=== PATIENT | male | born 1950 | race Caucasian/White ===

== ENCOUNTER 2018-09-18 18:41 | Inpatient (IN) ==
[2018-09-18 20:11] LABS: URINE SOURCE CLEAN CATCH
[2018-09-18 20:24] LABS: BILIRUBIN URINE NEGATIVE (NEGATIVE); BLOOD URINE SMALL (NEGATIVE); COLOR YELLOW; GLUCOSE URINE NEGATIVE (NEGATIVE); KETONE URINE NEGATIVE (NEGATIVE); LEUKOCYTES URINE NEGATIVE (NEGATIVE); NITRITE URINE NEGATIVE (NEGATIVE); PROTEIN URINE 30 mg/dL (NEGATIVE); SP GRAVITY URINE 1.016; TURBIDITY URINE CLEAR (CLEAR); UROBILINOGEN URINE 2 mg/dL (NORMAL)
[2018-09-18 20:24] LABS: BASO# 0.14 X1000 (0.0-0.2); BASO% 1.7 % (0.0-0.8); EOS# 0.78 X1000 (0.0-0.7); EOS% 9.3 % (0.0-10.0); HEMATOCRIT 45.5 % (42.0-52.0); HEMOGLOBIN 15.1 g/dL (14.0-18.0); LYMPH# 1.92 X1000 (1.2-3.4); MCH 30.2 PG (27-31); MCHC 33.2 g/dL (33-37); MONO# 0.85 X1000 (0.11-0.59); MONO% 10.2 % (1.7-9.3); MPV 10.6 FL (7.4-10.4); NEUT# 4.66 X1000 (1.4-6.5); NEUT% 55.8 % (42.2-75.2); PLT 259 X1000 (130-400); RDW 14.1 % (11.5-14.5); WBC 8.35 X1000 (4.8-10.8)
[2018-09-18 20:25] LABS: UR AMPHETAMINES QUAL NONE DETECTED (NONE DETECT); UR BARBITUATES QUAL NONE DETECTED (NONE DETECT); UR BENZODIAZEPIN QUAL NONE DETECTED (NONE DETECT); UR CANNABINOIDS QUAL NONE DETECTED (NONE DETECT); UR COCAINE QUAL NONE DETECTED (NONE DETECT); UR METHADONE QUAL NONE DETECTED (NONE DETECT); UR OPIATES QUAL NONE DETECTED (NONE DETECT); UR OXYCODONE QUAL NONE DETECTED (NONE DETECT); UR PCP QUAL NONE DETECTED (NONE DETECT)
[2018-09-18 20:26] LABS: UR EPITHELIAL CELLS <10 /HPF (<10); URINE BACTERIA NEGATIVE /HPF; URINE RBC <10 /HPF (<10); URINE WBC <10 /HPF (<10)
[2018-09-18 20:38] LABS: AGAP 13; ALB/GLOB RATIO 0.7; ALBUMIN 3.8 g/dL (3.5-5.0); ALKALINE PHOSPHATASE 801 U/L (32-122); BUN 17 mg/dL (8-22); CALCIUM 9.5 mg/dL (8.8-10.2); CHLORIDE 99 mmol/L (98-107); COSMO 280; ESTIMATED GFR > 60; GLUCOSE 109 mg/dL (70-104); GOT 59 U/L (10-34); GPT 57 U/L (10-44); POTASSIUM 3.8 mmol/L (3.5-5.1); SODIUM 139 mmol/L (136-145); TCO2 27 mmol/L (25-35); TOTAL PROTEIN 8.9 g/dL (6.3-8.3)
[2018-09-18] MEDS ORDERED: ATIVAN IM ONE (21:33)
[2018-09-18] MEDS ORDERED: GEODON IM ONE (21:33)
[2018-09-18] MEDS ORDERED: STERILE WATER INJ. INJ ONE (21:33)
--- NOTE | 2018-09-18 22:15 | Diag Imaging Result Doc PS360 ---
CT HEAD W/O CONTRAST - 09/18/2018 INDICATION: AMS COMPARISON: 01/21/2016 FINDINGS: Stable mild cerebral atrophy. Grossly stable periventricular white matter chronic microvascular disease. No intracranial mass or hemorrhage. There is fluid in the left maxillary sinus and several ethmoid sinuses compatible with sinusitis. Mastoids and middle ears are clear. IMPRESSION: Chronic ischemic changes of the brain. Multifocal sinusitis. No acute intracranial abnormality. This exam was performed using automated exposure control, adjustment of mA or kV according to patient size, and/or use of iterative reconstruction technique Electronically signed by Joey Guzman 09/18/2018 10:12 PM
--- NOTE | 2018-09-18 22:18 | Diag Imaging Result Doc PS360 ---
CHEST-PORTABLE - 09/18/2018 INDICATION: AMS COMPARISON: 05/09/2016 FINDINGS: There is cardiomegaly and pulmonary vascular congestion. No infiltrates or edema. No significant pleural effusion. IMPRESSION: Cardiomegaly and pulmonary vascular congestion. Electronically signed by Joey Guzman 09/18/2018 10:16 PM
[2018-09-18] MEDS ORDERED: PRINZIDE 20/12.5MG PO ONE (22:41)
[2018-09-18] MEDS ORDERED: AMOXIL PO ONE (22:42)
[2018-09-18] MEDS ORDERED: CATAPRES PO ONE (22:42)
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
[2018-09-18] MEDS ORDERED: LASIX IV ONE (23:32)
[2018-09-18] MEDS ORDERED: APRESOLINE IV ONE (23:33)
[2018-09-18] MEDS ORDERED: ZOFRAN IV PRN (23:35)
[2018-09-18] MEDS ORDERED: APRESOLINE IV PRN (23:38)
[2018-09-18] MEDS ORDERED: HALDOL IM PRN (23:43)
[2018-09-19] MEDS: ROCEPHIN 1 GM in NS 50 ML IV SCH ×2 (00:27→22:45)
--- NOTE | 2018-09-19 01:29 | HISTORY AND PHYSICAL ---
CHIEF COMPLAINT: Psych evaluation. HISTORY OF PRESENT ILLNESS: This is a 67-year-old male with a history of vascular dementia with multiple CVA, hypertension, diabetes mellitus type 2, who was no longer able to live by himself. He lives with his daughter who is his power of harnessmaker. From what the daughter tells me, he has stopped taking his medications and has become more agitated and aggressive. He has not slept well in the past 24-48 hours. Has become more and more aggressive and confused. The patient received Geodon and Ativan in the emergency room. He is resting more comfortably. However, he is hypertensive related to not taking his blood pressure medicine. Ultimately, the daughter would like to get him to a correction. She can no longer care for him at home. He will be admitted for further evaluation and treatment. PAST MEDICAL HISTORY: See HPI. PREVIOUS SURGICAL HISTORY: Denies. SOCIAL HISTORY: A pack a day smoker. He has smoked as many as 2 packs a day. Has smoked for multiple years. No alcohol. No illicit drugs. Lives with his daughter who is his power of harnessmaker. FAMILY HISTORY: Father had colon cancer. Sister had brain and ovarian cancer as well as diabetes. Another sister with diabetes mellitus. ALLERGIES: No known drug allergies.. HOME MEDICATIONS: A list of home medications has not been reconciled. An order was placed for Nursing to reconcile home medication. REVIEW OF SYSTEMS: Fourteen point review of systems conducted with the patient. He denies complaint. Pertinent positives for admission are listed above in the HPI. PHYSICAL EXAMINATION: VITAL SIGNS: Temperature 97.6, pulse 74, respirations 18, blood pressure 221/138, oxygen saturation 96% on room air. GENERAL: A 67-year-old male lying in the ER stretcher, somewhat disheveled, alert and oriented times 2, in no acute distress. HEENT: Head is atraumatic, normocephalic. Pupils equal, round, reactive to light. Extraocular eye movement is intact. Sclerae are anicteric. Conjunctiva is pink. Oral mucosa is dry. NECK: Supple. No JVD. No thyromegaly. Trachea is midline. No cervical lymphadenopathy. CARDIAC: S1, S2 appreciated. No murmurs, gallops, or rubs. LUNGS: Mild crepitations noted scattered throughout the air cadena. No rhonchi. No wheezing. Symmetric rise and fall with respirations. ABDOMEN: Soft, nondistended, nontender. Bowel sounds present all 4 quadrants, normoactive. No pulsatile mass. No organomegaly. EXTREMITIES: No clubbing, cyanosis, or edema. Two-plus pedal pulses bilaterally. GENITOURINARY: No bladder distention. Patient voids. Otherwise deferred. NEUROLOGICAL: Alert and oriented times 2. No focal or motor deficits. DIAGNOSTIC DATA: CT of the head: Chronic ischemic changes of the brain, multifocal sinusitis. Chest x-ray shows increased pulmonary vascular congestion and cardiomegaly. LABORATORY DATA: CBC within normal limits. Chemistry within normal limits. Glucose 109. Total bilirubin 1.20. AST 59. ALT 57. Alkaline phosphatase 801. Urine unremarkable. Toxicology screen and serum alcohol negative. ASSESSMENT AND PLAN: 1. Vascular dementia with agitation. Patient is refusing to take his home medications. The daughter is no longer able to care for him. He will be placed inpatient. We will consult Case Management to look for correction placement. Continue to give Seroquel 25 mg p.o. at bedtime, Haldol 2 mg IM q.2 hours as needed for agitation. If this fails to control the patient, we will give Ativan IM. 2. Diabetes mellitus type 2. Hold oral antihyperglycemics. Sliding scale insulin with fingerstick blood sugars. Check hemoglobin A1c. 3. Hypertension. We will place the patient on Norvasc 5 mg p.o. b.i.d. to start tomorrow. We will treat with hydralazine p.r.n. Patient had mild pulmonary vascular congestion. We will also give 40 of Lasix times 1 time dose. 4. Sinusitis. He was given amoxicillin in the emergency room. We will give Rocephin 1 g IV q.24 hours. 5. Tobacco abuse. Smoking cessation was not able to be conducted with the patient related to his mentation. We will place NicoDerm transdermal patch on patient's profile. Patient needs to be encouraged to stop smoking once he is back to his baseline orientation. Further recommendations per patient clinical course. Dictated by JUSTICE Chaney for Gio Fregoso MD cc: JUSTICE Chaney MD
[2018-09-19] MEDS ORDERED: KLOR-CON PO ONE (02:02)
[2018-09-19] MEDS: SEROQUEL PO SCH ×2 (04:42→22:16)
[2018-09-19] MEDS: HUMALOG SUBQ SCH ×4 (07:01→22:19)
[2018-09-19] MEDS: PRILOSEC PO SCH (07:02)
[2018-09-19 07:29] LABS: HEMOGLOBIN A1C 5.2 % (4.8-6.0)
[2018-09-19] MEDS: NEURONTIN PO SCH ×3 (08:26→22:16)
[2018-09-19] MEDS: NICODERM PATCH TD SCH (08:26)
[2018-09-19] MEDS: BUSPAR PO SCH (08:26)
[2018-09-19] MEDS: ASPIRIN EC PO SCH (08:26)
[2018-09-19] MEDS ORDERED: NORVASC PO SCH (09:00)
--- NOTE | 2018-09-19 09:19 | EKG Report ---
Test Performed on : 09/19/2018 09:11:25 AM Test Reason : Hypertensive urgency on admission. Blood Pressure : / mmHG Vent. Rate : 057 BPM Atrial Rate : 057 BPM P-R Int : 172 ms QRS Dur : 104 ms QT Int : 514 ms P-R-T Axes : 045 -65 232 degrees QTc Int : 500 ms Sinus bradycardia. Left anterior fascicular block Cannot rule out Inferior infarct (masked by fascicular block?) , age undetermined Anterolateral infarct , age undetermined Prolonged QT Abnormal ECG When compared with ECG of 21-JAN-2016 16:22, Anterior infarct is now present Anterolateral infarct is now present T wave inversion now evident in Inferior leads T wave inversion now evident in Anterolateral leads Unconfirmed Result
--- NOTE | 2018-09-19 11:03 | PROGRESS NOTE ---
DATE: 09/19/2018 INTERVAL HISTORY: Mr. Castro was admitted overnight because of progression of his vascular dementia, agitation, and hypertensive urgency. He was given multiple antihypertensive medications and antipsychotic medication, following which he had calmed down. SUBJECTIVE: At the time of my evaluation, he appears fidgety in the bed. However, he is following simple commands like opening mouth. Does not engage in any conversation, keeps his eyes closed. VITALS: Temperature 97.8 degrees, pulse 57, respiratory rate 18, blood pressure 120/73, saturating 97% on room air. PHYSICAL EXAMINATION: General: He is fidgety and keeps moving his arms and legs. HEENT: He has missing teeth on oral cavity examination with large tonsils; however, cavity appears moist without any congestion. He keeps his eyes closed. However, on retraction of the eyelids, his pupils are bilaterally equal, reacting to light. Lungs: Air entry bilaterally equal. No wheeze, rhonchi, crackles. Cardiovascular: S1, S2 normal. No murmur, rub, or gallop. Abdomen: Soft, nontender. Extremities: No lower extremity edema.. Neurological examination: He is alert. Keeps eyes closed. He is oriented to himself. Opens mouth to commands. On repeated verbal stimuli, he also gives me his hand for pulse check, however does not follow commands always and does not engage in meaningful conversation. He is able to lift right upper extremity above ground level. He appears to have some weakness of left upper extremity, and he is not able to raise it above ground level. He did not follow commands to check his lower extremities. IMAGING ON ADMISSION: Head CT had suggested chronic ischemic changes of the brain without any intracranial mass or hemorrhage with sinusitis. EKG in the morning time had suggested sinus bradycardia with left anterior fascicular block, which was present on 2016 EKG. He did have T- wave inversions affecting anterolateral and inferior leads and prolonged QTc. I will repeat another EKG. His troponins were negative. ASSESSMENT AND PLAN: 1. Vascular dementia with agitation. This could be just progression of his vascular dementia. I will continue his home quetiapine, buspirone, and we will give him intravenous haloperidol as needed, but I would try and avoid it if possible since his QTc is prolonged. 2. Acute sinusitis. He has been started on intravenous ceftriaxone. At the time of discharge, I might change it to oral amoxicillin to complete about 5-day course. 3. History of diabetes mellitus type 2, non-insulin dependent. Continue sliding scale insulin. His hemoglobin A1c, however, was in unremarkable range. 4. Essential hypertension. On admission he did have hypertensive urgency with systolic blood pressure more than 200, which could be in the setting of the agitation. Currently he is normotensive. He is not listed to be taking any antihypertensive medication on home medication list. I will continue him on small dose of amlodipine and will titrate as needed. 5. I am unsure if it is currently using tobacco or not. DISPOSITION: The patient's daughter wanted the patient to be placed in a custodial. As per the documentation of the previous note, I tried calling patient's daughter who is listed to be primary plant puller. However, she did not waste picker and the voicemail is not set up. I have consulted social work and care management team about possible placement. Whenever a bed becomes available, the patient should be able to be transferred to custodial. Plan of care was discussed with the social work team. cc: Yosvany Aquino MD
[2018-09-19] MEDS: NORVASC PO SCH (11:33)
--- NOTE | 2018-09-19 13:14 | Diag Imaging Result Doc PS360 ---
EXAM: US ABDOMEN-COMPLETE 09/19/2018 HISTORY: Evaluate for bile duct pathology TECHNIQUE: Abdominal ultrasound COMMENT: The visualized portions of the inferior vena cava is within normal limits. The aorta is slightly distended to 2.1 cm in AP dimension. There is a fairly well-circumscribed hypoechoic nodule in the area of the head of the pancreas measuring 1.2 cm in diameter. There are no previous studies available for comparison. There is antegrade flow in the portal vein. There are gallstones the largest which measure over a centimeter in size. The common bile duct measures up to 7 mm. There is no sonographic Evangelista sign. The kidneys are without evidence of hydronephrosis or solid mass. There is a cyst in the upper pole right kidney measuring 1.8 cm in greatest dimension. The spleen is slightly enlarged measuring over 13 cm in two planes. There are no abnormal fluid collections. IMPRESSION: Cholelithiasis. Apparent solid nodule in or adjacent to the pancreatic head. Further evaluation with CT is recommended. Electronically signed by Giancarlo Anne 09/19/2018 1:12 PM
[2018-09-19 15:32] LABS: BASO% 1.1 % (0.0-0.8); EOS# 0.91 X1000 (0.0-0.7); EOS% 9.7 % (0.0-10.0); HEMATOCRIT 44.3 % (42.0-52.0); HEMOGLOBIN 14.5 g/dL (14.0-18.0); IMM GRAN# 0.02 X1000 (0.0-0.04); IMM GRAN% 0.2 % (0.0-0.5); LYMPH# 2.68 X1000 (1.2-3.4); LYMPH% 28.5 % (20.5-51.1); MCH 29.7 PG (27-31); MCHC 32.7 g/dL (33-37); MCV 90.8 FL (81-99); MONO# 0.87 X1000 (0.11-0.59); MONO% 9.3 % (1.7-9.3); MPV 10.7 FL (7.4-10.4); NEUT# 4.82 X1000 (1.4-6.5); NEUT% 51.2 % (42.2-75.2); PLT 265 X1000 (130-400); RBC 4.88 XMIL (4.7-6.1); RDW 14.2 % (11.5-14.5)
[2018-09-19 15:51] LABS: CALCIUM 9.3 mg/dL (8.8-10.2); CREATININE 1.3 mg/dL (0.7-1.2); POTASSIUM 3.8 mmol/L (3.5-5.1)
[2018-09-19 17:03] LABS: URINE SOURCE CATH
[2018-09-19 17:07] LABS: BILIRUBIN URINE NEGATIVE (NEGATIVE); BLOOD URINE NEGATIVE (NEGATIVE); COLOR YELLOW; GLUCOSE URINE NEGATIVE (NEGATIVE); KETONE URINE NEGATIVE (NEGATIVE); LEUKOCYTES URINE NEGATIVE (NEGATIVE); NITRITE URINE NEGATIVE (NEGATIVE); PROTEIN URINE TRACE mg/dL (NEGATIVE); SP GRAVITY URINE 1.008; TURBIDITY URINE CLEAR (CLEAR); UROBILINOGEN URINE NORMAL (NORMAL)
[2018-09-19 17:08] LABS: UR EPITHELIAL CELLS <10 /HPF (<10); URINE BACTERIA NEGATIVE /HPF; URINE RBC <10 /HPF (<10); URINE WBC <10 /HPF (<10)
[2018-09-19 17:14] LABS: URINE CASTS NONE SEEN
[2018-09-19] MEDS: LIPITOR PO SCH (22:16)
[2018-09-20] MEDS: PRILOSEC PO SCH (05:59)
--- NOTE | 2018-09-20 07:50 | EKG Report ---
Test Performed on : 09/20/2018 06:48:16 AM Test Reason : Follow up EKG for ST T changes Blood Pressure : / mmHG Vent. Rate : 055 BPM Atrial Rate : 055 BPM P-R Int : 170 ms QRS Dur : 106 ms QT Int : 492 ms P-R-T Axes : 052 -58 220 degrees QTc Int : 470 ms Sinus bradycardia. Left anterior fascicular block Cannot rule out Inferior infarct (cited on or before 19-SEP-2018) Anterolateral infarct (cited on or before 19-SEP-2018) Abnormal ECG When compared with ECG of 19-SEP-2018 09:11, (Unconfirmed) No significant change was found Unconfirmed Result
[2018-09-20] MEDS: ASPIRIN EC PO SCH (08:04)
[2018-09-20] MEDS: HUMALOG SUBQ SCH ×4 (08:04→21:31)
[2018-09-20] MEDS: NICODERM PATCH TD SCH (08:04)
[2018-09-20] MEDS: NORVASC PO SCH (08:04)
[2018-09-20] MEDS: BUSPAR PO SCH (08:04)
[2018-09-20] MEDS: NEURONTIN PO SCH ×3 (08:04→21:32)
--- NOTE | 2018-09-20 16:38 | PROGRESS NOTE ---
DATE: 09/20/2018 INTERVAL HISTORY: No acute event overnight. The patient kept on coming out of bed, so he was asked to sit in a wheelchair, and he was sitting in the wheelchair right outside of nursing station. He does not appear in any acute distress. Denies any complaints. He is more awake and alert today than my yesterday's examination. PHYSICAL EXAMINATION: Vital Signs: Currently, temperature 98.1 degrees, pulse 67, respiratory rate 16, blood pressure 125/80, saturating 95% on room air. General: Does not appear in any acute distress. HEENT: Oral cavity is moist with missing teeth. Lungs: No wheezing, rhonchi or crackles. Cardiovascular: S1, S2 normal. No murmur or gallop. Abdomen: Soft, nontender. No lower extremity edema. Neurologic: He is alert. He is oriented to himself. Oriented to this place. He is not oriented to time. He can remember his date. Answers simple questions and follows simple commands. LABORATORY DATA: No new labs today. IMAGING: No new imaging except the abdominal ultrasound which had suggested a solid pancreatic nodule for which I have ordered a CT scan of the abdomen and pelvis. ASSESSMENT AND PLAN: 1. Acute encephalopathy in the setting of progression of vascular dementia. Continue home quetiapine, buspirone, and as needed haloperidol, which I would avoid since his QTc was prolonged. 2. Acute sinusitis. Continue intravenous ceftriaxone and stop at the time of discharge. 3. History of type 2 diabetes mellitus, non-insulin dependent. Continue sliding scale insulin. 4. Essential hypertension and hypertensive urgency on presentation. Continue home amlodipine, which is controlling his blood pressure well. 5. Pancreatic nodule. Under undocumented, it is listed that he is a tobacco smoker. The patient does not answer this question appropriately. Continue tobacco patch and follow up with CT scan of the abdomen and pelvis to rule out pancreatic malignancy. 6. Disposition: The patient's family had agreed to send him to rehab. I was not able to reach out to the daughters. I will try and reach out to daughter again and explained to them about the patient's clinical course. My plan is to discharge him to rehab facility potentially tomorrow. I called one of patient's daughter (Slime), however, she did not milk pickup truck driver and there was no option of leaving a voice message. cc: Yosvany Aquino MD [facility]
--- NOTE | 2018-09-20 20:38 | Diag Imaging Result Doc PS360 ---
EXAM: CT ABDOMEN/PELVIS W/O CONTRAST INDICATION: Follow up Pancreatic nodule TECHNIQUE: This exam was performed using automated exposure control, adjustment of mA or kV according to patient size, and/or use of iterative reconstruction technique. COMPARISON: None. FINDINGS: There is mild subsegmental atelectasis at the lung bases. The gallbladder is partially contracted. No pericholecystic inflammatory change is appreciated. The liver, spleen, and adrenal glands are unremarkable. As imaged, the pancreas is grossly unremarkable. However, evaluation of the pancreas is very limited with no IV contrast. A nodule a small abscess the one seen associated with the pancreatic head on the recent ultrasound would probably not be visualized. A contrast-enhanced pancreas protocol CT of the abdomen with high dose IV contrast would probably be needed if not contraindicated. There are several nonobstructing intrarenal stones bilaterally. There is no hydronephrosis. The kidneys are grossly unremarkable, otherwise. The urinary bladder is unremarkable. The appendix is normal. The remainder of the GI tract is grossly unremarkable. There is subaneurysmal ectasia of the abdominal aorta. There are bilateral common iliac artery aneurysms with the aneurysm on the right measuring 1.9 cm and aneurysmal in the left measuring 1.7 cm. The prostate is somewhat enlarged and there are prostatic calcifications. There is degenerative arthropathy throughout the lumbar spine and at both hips. IMPRESSION: 1.No gross pancreatic mass is identified. However, evaluation of the pancreas is significantly limited with no IV contrast. Please see above discussion. 2.Other incidental/nonacute findings detailed above. Electronically signed by Gregory Parra 09/20/2018 8:36 PM
[2018-09-20] MEDS: SEROQUEL PO SCH (21:32)
[2018-09-20] MEDS: LIPITOR PO SCH (21:32)
[2018-09-20] MEDS: ROCEPHIN 1 GM in NS 50 ML IV SCH (23:47)
[2018-09-21] MEDS: HUMALOG SUBQ SCH ×2 (05:59→12:43)
[2018-09-21] MEDS: PRILOSEC PO SCH (06:00)
[2018-09-21 06:03] VITALS: BP 141/81
[2018-09-21 07:25] LABS: CREATININE 1.3 mg/dL (0.7-1.2); POTASSIUM 3.3 mmol/L (3.5-5.1)
--- NOTE | 2018-09-21 07:52 | DISCHARGE SUMMARY ---
ADMISSION DATE: 09/18/2018 DISCHARGE DATE: DISCHARGE DIAGNOSES: 1. Acute encephalopathy in the setting of progression of vascular dementia. 2. Hypertensive urgency. 3. Acute sinusitis. 4. Acute kidney injury due to volume depletion 5. Hypokalemia 6. Pancreatic nodule on US. However, CT abdomen/pelvis did not detect it. PLEASE FOLLOW UP A REPEAT CT ABDOMEN/PELVIS WITH IV CONTRAST OUTPATIENT. OTHER DIAGNOSES: 1. History of essential hypertension. 2. History of anxiety. 3. History of chronic pain. 4. History of hyperlipidemia. 5. History of noninsulin-dependent diabetes mellitus. DISCHARGE MEDICATIONS: 1. Glimepiride 4 mg daily. 2. Atorvastatin 10 mg at nighttime. 3. Quetiapine 25 mg at nighttime. 4. Aspirin 81 mg daily. 5. Buspirone 10 mg daily. 6. Gabapentin 600 mg t.i.d. 7. Nicotine patch 21 mg topical daily. 8. Amlodipine 5 mg p.o. daily. 9. Omeprazole 40 mg daily at 7 a.m. 10. Acetaminophen 650 mg p.o. q.6 hours p.r.n. for pain. 11. Ondansetron 4 mg. CONSULTATIONS DURING HOSPITALIZATION: None. CURRENT VITALS: Temperature 98.1 degrees, pulse 67, blood pressure 125/80, saturating 95% on room air. PHYSICAL EXAMINATION: General: Patient has missing teeth. Does not appear in any acute distress. HEENT: Oral cavity is moist. Pupils bilaterally equal, reacting to light Lungs: Air entry bilaterally equal. No wheeze, rhonchi, crackles. Heart: S1, S2 normal. No murmur, rub, or gallop. Abdomen: Soft, nontender. Extremities: No lower extremity edema. Neurologic: He is alert, oriented to himself and this place, but he is not sure of the current state. He is following simple commands, answers simple questions. He states he was able to eat muffin; however, he could not chew properly. SIGNIFICANT LABS DURING HOSPITAL ADMISSION: His WBC is 9.4, hemoglobin 14.5, platelet 265,000. BUN 25, creatinine 1.3. SIGNIFICANT IMAGING DURING HOSPITAL ADMISSION: Chest x-ray had suggested cardiomegaly and pulmonary vascular congestion. Head CT had suggested chronic ischemic changes of the brain, multifocal sinusitis. No acute intracranial abnormalities. Abdomen ultrasound had suggested cholelithiasis, solid nodule adjacent to the pancreatic head. HOSPITAL COURSE SUMMARY: Mr. Castro is a 67 years old man, with history of multiple strokes in the past and vascular dementia, who was brought in on September 19 with chief complaints of altered mental status. Apparently, the daughter had reported to the nighttime doctor that the patient has stopped taking his medication, and had started becoming more agitated and aggressive. He was not sleeping for 1 to 2 days prior to presentation and was appearing confused. In the emergency room, he had required multiple antipsychotic and antianxiety medications, and he had become calm after that. On ED arrival, he was hypertensive with systolic blood pressure in the 220s. After antihypertensive medication, it was well controlled with the range of systolic blood pressure around 130 to 140. At the time of my evaluation, the patient was sitting in the wheelchair, though during hospital admission, he kept on coming out of bed without supervision and he was at high risk for falls. The patient was continued on his home medications of buspirone and quetiapine for anxiety and psychosis. He was continued on home medication of aspirin and atorvastatin for hyperlipidemia, and he was started on amlodipine for hypertension, which he had been tolerating well. The patient's family had requested rehab placement, and so consult was placed. Whenever a bed becomes available, the patient will be discharged to rehab. Plan of care was discussed with the patient and the nursing team. I will again try and reach out with the family and update them about the course. More than 30 minutes were spent on discharging this patient. cc: MD SHWETA Willard
[2018-09-21] MEDS ORDERED: KLOR-CON PO ONE (08:43)
[2018-09-21] MEDS ORDERED: NS 500 ML IV SCH (08:45)
[2018-09-21] MEDS: ASPIRIN EC PO SCH (09:39)
[2018-09-21] MEDS: BUSPAR PO SCH (09:39)
[2018-09-21] MEDS: NORVASC PO SCH (09:39)
[2018-09-21] MEDS: NICODERM PATCH TD SCH (09:39)
[2018-09-21] MEDS: NEURONTIN PO SCH (09:39)
--- NOTE | 2018-09-21 12:37 | PROGRESS NOTE ---
DATE: 09/21/2018 ADDENDUM TO DS ON 09/20/2018: INTERVAL HISTORY: No acute events overnight. The patient did not have a large meal yesterday. SUBJECTIVE: Patient is sleeping. Denies any complaints. He states he does not want to eat. OBJECTIVE: Vitals: Detect temperature of 97.5 degrees, pulse 56, respiratory rate of 20 per minute, blood pressure 141/81, saturating 97% on room air. General: On physical examination, he does not appear in any acute distress. Mouth: His oral cavity is moist. He does have missing teeth. Lungs: Air entry bilaterally equal. No wheeze, rhonchi, crackles. Cardiovascular: S1, S2 normal. No murmur or gallop. Abdomen: Soft, nontender. Extremities: No lower extremity edema. Neurologic: He is alert. He is oriented to himself. He is following simple commands, like opening mouth, forwarding his arm for pulse checks. LABS: Today suggestive of a potassium of 3.3, elevated BUN and creatinine, for which I have given him intravenous fluids. ASSESSMENT AND PLAN: 1. Acute encephalopathy in the setting of progression of vascular dementia. Continue home quetiapine, buspirone as needed, haloperidol. He has not been requiring the as-needed medication much. On reviewing the MAR, he has not required 1 in the last 24 hours. 2. Acute sinusitis, status post intravenous ceftriaxone. I will stop antibiotics at the time of discharge. 3. Acute kidney injury and hypokalemia in the setting of hypertensive emergency he presented with. Also poor oral intake and dehydration is contributing to it. I am giving him 1-time potassium dose, as well as 500 mL of normal saline. 4. Essential hypertension and hypertensive urgency on presentation, resolved. Continue amlodipine which is controlling his blood pressure well. 5. Pancreatic nodule. Abdomen and pelvis CT did not detect any gross pancreatic mass. However, evaluation of the pancreas was limited with no intravenous contrast, and pancreatic CT was recommended, which I would mention at the time of discharge in the discharge summary. I tried to reach out to patient's two daughters, Ms. Landis and Slime, on phone. No one picked up and there was no voicemail set up. 6. Disposition: Patient will be transferred to rehabilitation today. Plan of care discussed with the patient. cc: Yosvany Aquino MD
--- NOTE | 2018-09-22 01:36 | DISCHARGE SUMMARY ---
ADMISSION DATE: 09/18/2018 DISCHARGE DATE: 09/21/2018 ADDENDUM: I was not able to reach out to either of the two daughters after multiple attempts yesterday. I had informed the nursing team to let me know when family arrives today to pick Mr. Castro up to take to the rehab. However, later in the day I realized that Mr. Castro had left the facility but I was not notified of any family member. I again called one of the daughters. Her voice mail was not set up. After repeated attempts, I was able to reach out to one of the patient's daughters, Ms. Slime Castro. I informed her about the abnormal liver function tests and abnormal ultrasound of the abdomen findings. I explained to her that the ultrasound had detected a small lesion on the pancreas, which could be a benign cyst or it could be a malignancy. I explained to her that to further evaluate I had got an abdominal CT scan; however, it was without contrast and it did not detect anything unusual with the pancreas. However, I suggested that the patient get a repeat CT scan of his abdomen and pelvis with IV contrast. if the kidney functions allows to further evaluate his pancreatic suspected mass. I allowed sufficient time for her to ask me any questions and I answered all of those questions satisfactorily. cc: Yosvany Aquino MD [facility]TD[facility]
== END 2018-09-21 13:51 | DRG 884 ==
LOC: ED 18:41 → 3N 09-19 00:39 → SUATTDRO 09-19 00:39
PROVIDERS: ATTEND Internal Medicine
CPT/HCPCS: 70450; 71010; 71045; 74176; 76700; 80048; 80053; 80101; 80301; 80307; 80320; 80324; 80345; 80346; 80353; 80358; 80361; 80365; 81001; 82055; 82948; 83036; 83992; 84443; 84484; 85025; 93005; 96372; 96374; 96375; 97162; 97530; 99285; A9270; G0431; G0434; G0479; G0480; G6040; J0360; J0696; J1815; J1940; J2060; J3486; J7040; XXXXX

== ENCOUNTER 2018-11-07 15:11 | Inpatient (IN) ==
[2018-11-07 16:08] LABS: BASO# 0.09 X1000 (0.0-0.2); BASO% 1.1 % (0.0-0.8); HEMATOCRIT 41.1 % (42.0-52.0); HEMOGLOBIN 13.8 g/dL (14.0-18.0); IMM GRAN# 0.03 X1000 (0.0-0.04); IMM GRAN% 0.4 % (0.0-0.5); LYMPH# 1.11 X1000 (1.2-3.4); LYMPH% 13.3 % (20.5-51.1); MCH 30.3 PG (27-31); MCHC 33.6 g/dL (33-37); MCV 90.1 FL (81-99); MONO# 0.77 X1000 (0.11-0.59); MONO% 9.3 % (1.7-9.3); NEUT# 5.32 X1000 (1.4-6.5); NEUT% 63.9 % (42.2-75.2); PLT 227 X1000 (130-400); RBC 4.56 XMIL (4.7-6.1); RDW 15.1 % (11.5-14.5); WBC 8.32 X1000 (4.8-10.8)
--- NOTE | 2018-11-07 16:10 | Diag Imaging Result Doc PS360 ---
CHEST-PORTABLE - 11/07/2018 INDICATION: Fall, poor historian COMPARISON: 09/18/2018 FINDINGS: Stable cardiomegaly and pulmonary vascular congestion. No infiltrates or edema. No pneumothorax or significant pleural effusion. IMPRESSION: Cardiomegaly and mild pulmonary vascular congestion. Electronically signed by Joey Guzman 11/07/2018 4:08 PM
--- NOTE | 2018-11-07 16:26 | Diag Imaging Result Doc PS360 ---
CT PELVIS W/O CONTRAST - 11/07/2018 INDICATION: Fall , poor historian, unable to walk COMPARISON: 09/20/2018 FINDINGS: There is a displaced, comminuted fracture through the right greater trochanter. No definite femoral neck fracture. The left hip is intact. There is mild bilateral hip osteoarthritis. IMPRESSION: Fracture through the right greater trochanter. This exam was performed using automated exposure control, adjustment of mA or kV according to patient size, and/or use of iterative reconstruction technique Electronically signed by Joey Guzman 11/07/2018 4:24 PM
[2018-11-07 16:30] LABS: URINE SOURCE CLEAN CATCH
[2018-11-07 16:36] LABS: BILIRUBIN URINE NEGATIVE (NEGATIVE); BLOOD URINE TRACE (NEGATIVE); COLOR YELLOW; GLUCOSE URINE NEGATIVE (NEGATIVE); KETONE URINE NEGATIVE (NEGATIVE); LEUKOCYTES URINE NEGATIVE (NEGATIVE); NITRITE URINE NEGATIVE (NEGATIVE); PH URINE 6.5; PROTEIN URINE NEGATIVE (NEGATIVE); SP GRAVITY URINE 1.005; TURBIDITY URINE CLEAR (CLEAR); UR EPITHELIAL CELLS <10 /HPF (<10); URINE BACTERIA NEGATIVE /HPF; URINE RBC <10 /HPF (<10); URINE WBC <10 /HPF (<10); UROBILINOGEN URINE 2 mg/dL (NORMAL)
[2018-11-07 16:43] LABS: AGAP 15; ALB/GLOB RATIO 0.7; ALBUMIN 3.5 g/dL (3.5-5.0); ALKALINE PHOSPHATASE 858 U/L (32-122); BUN 22 mg/dL (8-22); CALCIUM 9.2 mg/dL (8.8-10.2); CHLORIDE 101 mmol/L (98-107); COSMO 286; ESTIMATED GFR > 60; GLUCOSE 125 mg/dL (70-104); GOT 54 U/L (10-34); GPT 53 U/L (10-44); POTASSIUM 3.8 mmol/L (3.5-5.1); SODIUM 141 mmol/L (136-145); TCO2 25 mmol/L (25-35); TOTAL BILIRUBIN 1.24 mg/dL (0.20-1.00); TOTAL PROTEIN 8.2 g/dL (6.3-8.3)
[2018-11-07] MEDS ORDERED: MORPHINE IV PRN (18:56)
[2018-11-07] MEDS ORDERED: TYLENOL PO PRN (18:56)
[2018-11-07] MEDS ORDERED: ZOFRAN IV PRN (18:56)
[2018-11-07] MEDS ORDERED: NS 1,000 ML IV SCH (18:56)
--- NOTE | 2018-11-07 19:05 | PROVIDER DOCUMENTATION ---
This chart was entered by Rachel Bunch Scribe, acting as scribe for Avtar Fontenot MD. HPI-General Adult - General Chief Complaint: Fall Stated Complaint: FALL Time Seen by Provider: 11/07/18 15:20 Source: patient Allergies/Adverse Reactions: Patient Allergies Allergy/AdvReac Type Severity Reaction Status Date / Time No Known Allergies Allergy Verified 11/07/18 15:30 Home Medications: Home Medication List Medication Instructions Recorded Confirmed Last Taken Type Glimepiride 4 mg PO DAILY 06/09/13 11/07/18 09/10/18 History Buspirone [Buspar] 10 mg PO DAILY #30 tablet 01/26/16 11/07/18 09/10/18 Rx Omeprazole [Prilosec] 40 mg PO DAILY@0700 #0 capsule 01/26/16 11/07/18 09/17/18 Rx Amlodipine [Norvasc] 5 mg PO DAILY tab 09/20/18 11/07/18 Unknown Rx Lactulose 10 gm PO BID 11/07/18 11/07/18 Unknown History Oxcarbazepine 300 mg PO QHS 11/07/18 11/07/18 Unknown History - History of Present Illness -Gen Adult Nature of Presenting Problems: Patient is a 67 year old male who presents to the ED via EMS after having a fall. told EMS patient was getting out of his wheelchair and fell landing on right side of his body. Patient denies pain and LOC. History of dementia and CVA. Patient is a poor historian. Location of Pain/Injury: reports: none Pain Radiation: reports: no radiation Quality of Pain: reports: none Severity: reports: mild Onset/Duration: reports: just prior to arrival Timing: reports: still present Context/Activities at Onset: reports: light activity Associated Symptoms: reports: denies symptoms Similar Symptoms Previously?: No Recently seen or treated by another doctor?: No Review of Systems - Adult - REVIEW OF SYSTEMS - ADULT Constitutional: reports: no symptoms reported. denies: chills, fever, fatique Eyes: reports: no symptoms reported Ears, Nose, Mouth & Throat: reports: no symptoms reported Cardiovascular: reports: no symptoms reported Respiratory: reports: no symptoms reported Gastrointestinal: reports: no symptoms reported Genitourinary: reports: no symptoms reported Musculoskeletal: reports: no symptoms reported. denies: back pain, joint pain, muscle aches, neck pain Integumentary: reports: no symptoms reported Neurological: reports: no symptoms reported. denies: dizziness/vertigo, headache/migraines, numbness, seizure Psychiatric: reports: no symptoms reported Past History - Adult - PAST MEDICAL HISTORY-ADULT Review of Records: reports: Nursing Assessment Review, Medications Reviewed, Social history reviewed & non-contributory. Major Childhood Illnesses: reports: denies history Cardiovascular: reports: HTN, hyperlipidemia Respiratory: reports: denies history Gastrointestinal: reports: GERD Obstetrical/Gynecological: reports: denies history Genitourinary: reports: denies history Musculoskeletal: reports: denies history Neurological: reports: CVA, dementia, TIA Endocrine/Immune: reports: Diabetes, thyroid disorder Other Conditions: reports: denies history - PRIOR SURGERIES/PROCEDURES Surgical/Procedure History: reports: none - IMMUNIZATION STATUS Childhood Immunizations: See Nurse Assessment Flu Vaccine: See Nurse Assessment - FAMILY HISTORY Family History: reviewed, not pertinent - SOCIAL HISTORY Smoking: cigarettes, greater than 1 pack/day Provider spent 3-5 mins advising pt. on dangers of tobacco.: Discussed manners to quit use, and f/u contacts for add'l counseling. Substance Use: denies Physical Exam-General - PHYSICAL EXAM-ADULT Initial Vital Signs Reviewed: Yes - CONSTITUTIONAL General Appearance: alert, no apparent distress. negative: lethargic, slow to respond - HEAD, EARS, NOSE, MOUTH & THROAT HENMT: dental decay, other (poor dentition). negative: angioedema, hearing deficit - RESPIRATORY Respiratory: chest non-tender, lungs clear, normal breath sounds. negative: crackles, stridor - CARDIOVASCULAR Cardiovascular: normal peripheral pulses, regular rate, rhythm, systolic murmur. negative: tachycardia - MUSCULOSKELETAL Extremity: non-tender, normal inspection, pelvis stable. negative: erythema - SKIN Integumentary: normal color, normal turgor, warm/dry. negative: ecchymosis, erythema, jaundice - NEUROLOGIC Neurologic: grossly normal. negative: aphasia, facial droop - PSYCHIATRIC Psych/Mental Status: disheveled, other (disoriented to time. oriented to place and person). negative: normal mood/affect, oriented x 3 Progress - PLAN OF CARE/RESULTS Progress/Plan/Lab Results: Vital Signs - 8 hr 11/07/18 15:28 Temperature 97.8 F Pulse Rate 73 Respiratory Rate 16 Blood Pressure 171/108 O2 Sat by Pulse Oximetry 97 Result Diagrams: 11/07/18 15:53 11/07/18 15:53 - XRAY 1 XRAY Study: Chest Impression: See EMR Report ( CHEST-PORTABLE - 11/07/2018 INDICATION: Fall, poor historian COMPARISON: 09/18/2018 FINDINGS: Stable cardiomegaly and pulmonary vascular congestion. No infiltrates or edema. No pneumothorax or significant pleural effusion. IMPRESSION: Cardiomegaly and mild pulmonary vascular congestion. Electronically signed by Joey Guzman 11/07/2018 4:08 PM 11/07/18 1608 Interpreting Physician: Joey Guzman MD Dictated Date/Time: 11/07/18 1607 cc: Avtar Bailey MD;) - CT/MRI 1 CT Study: Pelvis Impression: See EMR Report ( CT PELVIS W/O CONTRAST - 11/07/2018 INDICATION: Fall , poor historian, unable to walk COMPARISON: 09/20/2018 FINDINGS: There is a displaced, comminuted fracture through the right greater trochanter. No definite femoral neck fracture. The left hip is intact. There is mild bilateral hip osteoarthritis. IMPRESSION: Fracture through the right greater trochanter. This exam was performed using automated exposure control, adjustment of mA or kV according to patient size, and/or use of iterative reconstruction technique Electronically signed by Joey Guzman 11/07/2018 4:24 PM 11/07/18 1624 Interpreting Physician: Joey Guzman MD Dictated Date/Time: 11/07/18 1622 cc: Avtar Bailey MD; None,PCP) - CONSULTS/PCP/HOSPITALIST Notification #1 *Consult/PCP/Hospitalist*: Dr. Godoy Time Discussed: 17:14 Consult Disposition: Admit (Hx, PE and patient care discussed, patient can't walk, admit and will see tmw.) #2 Consult: JUSTICE [facility] for Hospitalist Dr. Boles Time Discussed: 17:32 Consult Disposition: Will see in ED, Admit Departure - Departure Date of Disposition Decision: 11/07/18 Time of Disposition Decision: 17:32 DIAGNOSIS: Fall Qualifiers: Encounter type: initial encounter Qualified Code(s): W19.XXXA - Unspecified fall, initial encounter Fracture of greater trochanter of right femur Qualifiers: Encounter type: initial encounter Fracture type: closed Fracture alignment: displaced Qualified Code(s): S72.111A - Displaced fracture of greater trochanter of right femur, initial encounter for closed fracture Disposition: ADMITTED INPATIENT 09 Certified Medical Emergency: Emergent Condition: Stable Referrals and Follow-Ups: None,PCP [Primary Care Provider] - - Critical Care Note This patient required my direct & personal management of CC.: No Attestation - Physician/ TIFFANIE Attestation Patient care was provided by Advanced Practice Provider:: No The physician spent face to face time with patient:: Yes Advanced Practice Provider documentation review:: Supervising physician onsite and consulted in the evaluation and care of this patient. The physician did have a face to face encounter with the patient. This chart was documented by the indicated scribe, (Rachel Bunch Scribe) and accurately reflects the services I performed and decisions made by me, Al-Had Avtar pisano MD, as attested by the provider's signature.
[2018-11-07] MEDS ORDERED: CATAPRES PO ONE (19:29)
[2018-11-07] MEDS ORDERED: CATAPRES ONE (19:32)
[2018-11-07] MEDS: HUMALOG SUBQ SCH (20:38)
[2018-11-08] MEDS: NEURONTIN PO SCH ×4 (00:38→22:19)
[2018-11-08] MEDS: LIPITOR PO SCH ×2 (00:38→22:19)
--- NOTE | 2018-11-08 01:51 | HISTORY AND PHYSICAL ---
CHIEF COMPLAINT: Recent fall. HISTORY OF PRESENT ILLNESS: Mr. Jose Castro is a 67-year-old male who has a history of multiple medical conditions, including vascular dementia, previous CVA, hypertension, diabetes mellitus type 2. The patient did sustain a fall prior to coming to the hospital. On presentation to the ER, had a pelvic CT scan which showed evidence of a displaced comminuted fracture to the right greater trochanter with no definite femoral neck fracture. The left hip was described as intact. The patient was seen and evaluated in the ER. He will now be admitted to floor now for further management. PAST MEDICAL HISTORY: Dementia, previous CVA, hypertension, type 2 diabetes mellitus, hyperlipidemia, gastroesophageal reflux disease, pancreatic head nodule, chronic pain, history of anxiety disorder. HOME MEDICATIONS: 1. Glimepiride 4 mg p.o. daily. 2. Atorvastatin 10 mg. 3. Seroquel 25 mg at bedtime. 4. Aspirin 81 mg daily. 5. Buspirone 10 mg p.o. daily. 6. Gabapentin 600 mg 7. Nicotine patch 21 mg p.o. daily. 8. Nausea or vomiting 5 mg p.o. daily. 9. Omeprazole 40 mg p.o. daily. 10. Acetaminophen 650 mg every 6 hours p.r.n. pain. 11. Ondansetron 4 mg as directed. SOCIAL HISTORY: The patient smokes cigarettes. No alcohol or drug use. SURGICAL HISTORY: Unremarkable. FAMILY HISTORY: Positive for cancer as well as diabetes mellitus. ALLERGIES: No known drug allergies. REVIEW OF SYSTEMS: The patient denies any fever, headaches, cough, chest pain, nausea, vomiting, diarrhea, dysuria. No depression or thyroid disease. PHYSICAL EXAMINATION: VITAL SIGNS ARE FOLLOWS: Temperature 98.9 degrees, pulse is 82, respirations 20, blood pressure 165/96, oxygen saturation 98%. HEENT: She is atraumatic, normocephalic. Eyes anicteric. No oral lesions noted. NECK: No lymphadenopathy or thyromegaly. CARDIOVASCULAR: S1, S2. RESPIRATORY: Has evidence of good air entry bilaterally. ABDOMEN: Soft, nontender. No masses felt. EXTREMITIES: No evidence of edema. CENTRAL NERVOUS SYSTEM: The patient is awake, alert. No obvious focal deficit noted. LABORATORY DATA: WBC 6.32, hematocrit 41.1, a platelet count 227,000. Sodium is 141, potassium 3.9, chloride is 101, bicarb 25, BUN is 32, creatinine 1.0. Liver function tests with AST 54, ALT 53, alkaline phosphatase 858. ProBNP is 1413. IMAGING DATA: 1. X-ray chest shows evidence of cardiomegaly with pulmonary vascular congestion. 2. Pelvic CT shows a fracture through the right greater trochanter. ASSESSMENT AND PLAN: This is a 67-year-old male presented to the hospital after sustaining a fall. Pelvic CT shows evidence of a fracture through the right greater trochanter. 1. Right greater trochanter fracture. Optimize pain control. Consult with Orthopedics. 2. Acute pulmonary edema. Maintain patient on diuretics. Monitor intakes and outputs, as well as daily weights, and obtain 2D echo of the heart. 3. Abnormal liver function test. Obtain an ADRIANA level, ferritin level, abdominal ultrasound as well as hepatitis panel. 4. Pancreatic head nodule. Obtain an MRI of the abdomen to further evaluate this lesion. 5. Diabetes mellitus. Maintain patient on sliding scale insulin. Monitor blood sugar levels. Check hemoglobin A1c level. 6. Dementia. Consider adding cholinesterase inhibitors. Use antipsychotics for agitation. Supportive care. 7. Hypertension. Continue current antihypertensive regimen. 8. Tobacco use history. The patient needs to be advised on tobacco cessation and nicotine patch. 9. Deep venous thrombosis prophylaxis. Lovenox. 10. Gastrointestinal prophylaxis. Proton pump inhibitor. cc: Roman Boles MD MTDD
[2018-11-08] MEDS ORDERED: CALMOSEPTINE OINTMENT TOP PRN (03:11)
[2018-11-08 06:34] LABS: BASO# 0.06 X1000 (0.0-0.2); BASO% 0.6 % (0.0-0.8); EOS# 0.61 X1000 (0.0-0.7); EOS% 5.8 % (0.0-10.0); HEMATOCRIT 39.2 % (42.0-52.0); HEMOGLOBIN 13.3 g/dL (14.0-18.0); IMM GRAN# 0.02 X1000 (0.0-0.04); IMM GRAN% 0.2 % (0.0-0.5); LYMPH# 2.44 X1000 (1.2-3.4); LYMPH% 23.3 % (20.5-51.1); MCH 30.6 PG (27-31); MCHC 33.9 g/dL (33-37); MCV 90.1 FL (81-99); MONO# 1.26 X1000 (0.11-0.59); MPV 10.2 FL (7.4-10.4); NEUT# 6.07 X1000 (1.4-6.5); NEUT% 58.1 % (42.2-75.2); PLT 231 X1000 (130-400); RBC 4.35 XMIL (4.7-6.1); RDW 14.9 % (11.5-14.5); WBC 10.46 X1000 (4.8-10.8)
[2018-11-08 06:44] LABS: HEMOGLOBIN A1C 4.9 % (4.8-6.0)
[2018-11-08 07:14] LABS: AGAP 13; ALB/GLOB RATIO 0.7; ALBUMIN 3.2 g/dL (3.5-5.0); ALKALINE PHOSPHATASE 746 U/L (32-122); BUN 20 mg/dL (8-22); CALCIUM 8.7 mg/dL (8.8-10.2); CHLORIDE 103 mmol/L (98-107); COSMO 281; CREATININE 0.8 mg/dL (0.7-1.2); ESTIMATED GFR > 60; GLUCOSE 112 mg/dL (70-104); GOT 49 U/L (10-34); GPT 49 U/L (10-44); POTASSIUM 3.3 mmol/L (3.5-5.1); SODIUM 139 mmol/L (136-145); TCO2 23 mmol/L (25-35); TOTAL BILIRUBIN 1.56 mg/dL (0.20-1.00)
[2018-11-08] MEDS: HUMALOG SUBQ SCH ×4 (08:09→21:08)
[2018-11-08] MEDS: PRILOSEC PO SCH (08:10)
--- NOTE | 2018-11-08 08:13 | Diag Imaging Result Doc PS360 ---
US ABDOMEN-COMPLETE - 11/08/2018 INDICATION: abnormal lfts COMPARISON: CT 09/20/2018 FINDINGS: There are numerous shadowing gallstones in the gallbladder. No gallbladder distention or surrounding free fluid. There is splenomegaly. The spleen measures 13.8 x 6 cm. Common bile duct measures 6 mm. Aorta, IVC, and main portal vein are patent. There is a small right renal cyst measuring 1.4 cm. The left kidney is normal. There is a small hypoechoic nodule at the pancreatic head measuring 11 x 7 mm. Remainder the pancreas appears normal. No free fluid. IMPRESSION: 1. Numerous gallstones in the gallbladder. No definite cholecystitis. 2. Small hypoechoic nodule in the pancreatic head. Significance uncertain. Electronically signed by Joey Guzman 11/08/2018 8:11 AM
[2018-11-08] MEDS ORDERED: AMARYL PO SCH (09:00)
--- NOTE | 2018-11-08 09:20 | ORTHOPAEDICS CONSULTATION ---
DATE: 11/08/2018 HISTORY OF PRESENT ILLNESS: Mr. Castro is seen today for right greater trochanter fracture. He was admitted by the hospitalist yesterday. He reports sustaining a fall. He was seen in the emergency room with right hip pain. He underwent a CT scan and workup which showed a greater trochanter fracture. He was admitted by the hospitalist for pain management. He reports appropriate soreness over the right hip. PAST MEDICAL HISTORY: 1. Dementia. 2. CVA. 3. Hypertension. 4. Diabetes. 5. Hyperlipidemia. 6. Reflux. 7. Chronic pain. 8. Anxiety. MEDICATIONS: Medications are listed on his intake including 1. Glyburide. 2. 3. Seroquel. 4. Aspirin. 5. Buspirone. 6. Gabapentin. 7. Nicotine patch. 8. Omeprazole. 9. Tylenol. 10. Zofran. SOCIAL HISTORY: Apparently smokes, but does not use drugs or alcohol. PHYSICAL EXAMINATION: General: Reveals him to be somewhat of a poor historian. He is alert and responsive. Musculoskeletal: He is nontender over the neck and spine. Upper extremities are both nontender with good range of motion. The left lower extremity is relatively nontender. Right lower extremity has some tenderness over the lateral aspect of the hip. There is relatively minimal tenderness on internal-external rotation of the hip with the leg out straight. There are no focal motor or sensory deficits. IMAGING: X-rays are reviewed and include a CT scan of the pelvis, which shows a greater trochanter fracture, which does not extend into the intertrochanteric weightbearing area. ASSESSMENT: Greater trochanter fracture, stable. PLAN: The patient has a greater trochanter fracture which is nonsurgical in nature. This can be treated with mobilization and weightbearing to tolerance. We will be happy to see him in the office in roughly a month for followup x-ray. He can be discharged from the hospital when he is mobilizing with therapy and pain is managed. We will be available as needed. Otherwise, we will plan on seeing him in the outpatient clinic for followup x-ray. cc: Gregory Morales MD MTDD
--- NOTE | 2018-11-08 09:38 | Diag Imaging Result Doc PS360 ---
EXAM: MRI ABDOMEN W/O CONTRAST INDICATION: pancreatic head nodule TECHNIQUE: COMPARISON: No prior MRI abdomen is available for comparison. FINDINGS: There is no discrete abnormality identified on unenhanced MRI to correspond to the potential small nodule seen on previous ultrasounds involving the head of the pancreas. The remainder of the pancreas is grossly unremarkable. There are several gallstones in the lumen of the gallbladder. There is no significant biliary dilatation detected. The visualized liver is unremarkable. The spleen and adrenal glands are unremarkable. There are several small renal cysts bilaterally, more on the right. The kidneys are grossly unremarkable, otherwise. The visualized abdominal segments of the GI tract are unremarkable. IMPRESSION: No discrete pancreatic head lesion identified by unenhanced MRI to correspond to the potential solid nodule seen on recent ultrasound. Electronically signed by Gregory Parra 11/08/2018 9:36 AM
[2018-11-08] MEDS: NORVASC PO SCH (10:34)
[2018-11-08] MEDS: CALMOSEPTINE OINTMENT TOP SCH ×4 (10:34→22:18)
[2018-11-08] MEDS: BUSPAR PO SCH (10:34)
[2018-11-08] MEDS: ASPIRIN PO SCH (10:34)
[2018-11-08] MEDS: LASIX PO SCH (10:34)
--- NOTE | 2018-11-08 12:48 | PROGRESS NOTE ---
DATE: 11/08/2018 SUBJECTIVE: Patient resting comfortably in bed. OBJECTIVE: Vital Signs: Temperature 97.7 degrees, pulse 74, respiratory rate 18, blood pressure 160/83, and oxygen saturation 99%. HEENT: Atraumatic, normocephalic. Cardiovascular: S1, S2. Respiratory: There is evidence of good air entry bilaterally. Abdomen: Soft, nontender. No masses felt. Central nervous system: No obvious focal deficits noted. LABORATORY: WBC is 10.46, hematocrit 39.2 with a platelet count of 231,000. Sodium is 139, potassium 3.3, chloride 103, bicarb is 23, BUN is 20 and creatinine 0.8. ASSESSMENT AND PLAN: 1. Right greater trochanteric fracture. No plans for surgery at this time. 2. Acute pulmonary edema. Maintain patient on diuretics and monitor intakes and outputs, as well as daily weights. Follow up on 2D echo of the heart. 3. Abnormal liver function tests. Follow up on abdominal ultrasound as well as hepatitis panel. 4. Pancreatic head noted. Follow up on MRI of the abdomen. 5. Diabetes mellitus. Continue blood sugar monitoring as well as sliding scale insulin. 6. Dementia. Use antipsychotics for agitation as well as supportive care. 7. Hypertension. Continue current antihypertensive regimen. 8. Tobacco use history. Nicotine patch recommended. 9. Deep vein thrombosis prophylaxis. Lovenox. 10. Gastrointestinal prophylaxis. Proton pump inhibitor. cc: Roman Boles MD
--- NOTE | 2018-11-08 21:39 | ECHO REPORT ---
ORDER DATE: 11/08/2018 MEASUREMENTS: Septal thickness 1.4, left ventricular internal diameter in diastole 4.9, posterior wall thickness 1.3, left ventricular internal diameter in systole 3.0, aortic root 3.5, left atrium 3.7. SUMMARY: 1. Technically difficult study due to limited acoustic window quality. Intravenous echocontrast agent Optison was utilized to enhance endocardial definition. 2. The aortic valve is trileaflet and opens normally on 2-dimensional images. Peak gradient across the aortic valve is approximately 10 mmHg. There is trace aortic regurgitation. Mitral and tricuspid valves are without evidence of structural abnormality, while the pulmonic valve is not well demonstrated. There is trace tricuspid regurgitation and trace pulmonic insufficiency. The aortic root is normal in size. 3. Normal left ventricular chamber size with mild concentric left ventricular hypertrophy is demonstrated. Estimated left ventricular ejection fraction appears to be at least 50%. There is akinesis and thinning of the apex and apical inferior wall. Doppler suggests grade 1 left ventricular diastolic dysfunction. Left atrium, right atrium and right ventricle are normal in size. 4. No pericardial effusion. 5. Inferior vena cava not well demonstrated. cc: MD Roman Morales MD
[2018-11-09] MEDS: PRILOSEC PO SCH (06:04)
[2018-11-09] MEDS: HUMALOG SUBQ SCH ×4 (06:26→22:07)
[2018-11-09] MEDS: LOVENOX SUBQ SCH (09:41)
[2018-11-09] MEDS: LASIX PO SCH (09:41)
[2018-11-09] MEDS: NEURONTIN PO SCH ×3 (09:41→22:07)
[2018-11-09] MEDS: BUSPAR PO SCH (09:41)
[2018-11-09] MEDS: NORVASC PO SCH (09:41)
[2018-11-09] MEDS: NICODERM PATCH TD SCH (09:41)
[2018-11-09] MEDS: ASPIRIN PO SCH (09:41)
[2018-11-09] MEDS: CALMOSEPTINE OINTMENT TOP SCH ×4 (09:45→22:07)
[2018-11-09 10:10] LABS: HEPATITIS PROFILE ACUTE SEE COMMENTS
--- NOTE | 2018-11-09 16:28 | PROGRESS NOTE ---
DATE: 11/09/2018 This morning Mr. Castro referred to be doing fairly okay. Denies any new complaints. OBJECTIVE: His vitals, blood pressure 115/89, pulse is 62, respiration is 18, temperature 97.5 degrees patient is saturating 95% on room air.General: Mr. Castro is a 67-year-old gentleman he is in bed, no distress. Mucosa is pink and moist. Anicteric, acyanotic. Neck: Supple. Chest: Clear to auscultation. No crepitation, no rhonchi. Cardiovascular: Regular rate and rhythm. No murmurs, no rubs, no gallops. Abdomen: Soft, nontender. Bowel sounds present. Extremities: No pedal edema. The left lower extremity was colder than the right and the pulse was almost imperceptible. There was adequate pulse however felt in the left inguinal region. LABORATORY DATA: None for today. CURRENT MEDICATIONS: Have all been reviewed. ASSESSMENT: 1. Right greater trochanteric fracture as a result of status post mechanical fall, patient has been evaluated by Orthopedics and the plan is to continue nonsurgical intervention. 2. Diabetes mellitus controlled. 3. History of tobacco abuse. Patient has been counseled. 4. Left lower extremity cold. Unsure if it is any reflection of peripheral vascular disease. Patient does not complain of any pain. There is no any motor deficit and no sensory deficit. He does not seem to have any hard signs of acute limb ischemia. We will do a vascular studies of the lower extremity to see what is going on for now. 5. History of vascular dementia. 6. Cholelithiasis with no evidence of cholecystitis. 7. Mildly elevated liver enzymes. This seems to be actually chronic after from 2016, it has been fairly on the higher end, an MRI is unremarkable. Patient will need to follow up with GI for outpatient evaluation, patient will probably end up having a liver biopsy to have a better understanding of what is going on his liver. Previous hepatitis screening was unremarkable. 8. In terms of disposition I understand patient is waiting a rehab bed at [facility] in [place]. cc: Randall Crowe MD
[2018-11-09] MEDS: LIPITOR PO SCH (22:07)
[2018-11-10] MEDS: PRILOSEC PO SCH (06:08)
[2018-11-10] MEDS: HUMALOG SUBQ SCH ×4 (07:14→23:42)
[2018-11-10] MEDS: CALMOSEPTINE OINTMENT TOP SCH ×3 (11:49→16:39)
[2018-11-10] MEDS: NEURONTIN PO SCH ×3 (11:49→23:42)
[2018-11-10] MEDS: ASPIRIN PO SCH (11:50)
[2018-11-10] MEDS: NORVASC PO SCH (11:50)
[2018-11-10] MEDS: BUSPAR PO SCH (11:51)
[2018-11-10] MEDS: LASIX PO SCH (11:51)
[2018-11-10] MEDS: NICODERM PATCH TD SCH (11:52)
[2018-11-10] MEDS: LOVENOX SUBQ SCH (11:52)
--- NOTE | 2018-11-10 13:56 | PROGRESS NOTE ---
DATE: 11/10/2018 SUBJECTIVE: Patient is resting comfortably in bed. Not in any obvious distress. OBJECTIVE: Vital signs: Temperature 98.4 degrees, pulse 68, respiratory rate 22, blood pressure is 141/95, oxygen saturation is 93%. HEENT: Atraumatic, normocephalic. Cardiovascular: S1, S2. Respiratory system: Has evidence of good air entry bilaterally. Abdomen: Soft, nontender. No masses felt. Extremities: No evidence of edema. Central nervous system: No obvious focal deficits noted. LABORATORIES: Blood sugar 119. ASSESSMENT AND PLAN: 1. Right greater trochanteric fracture. No plans for surgery at this time. 2. Acute diastolic congestive heart failure. Monitor intakes and outputs, as well as daily weights. Use diuretics as needed. 3. Abnormal liver function tests. Abdominal ultrasound. Notes numerous gallstones in the gallbladder. There is also small hyperechoic nodule in the pancreatic head. Significance is not known. The patient's hepatitis panel is negative. 4. With regards to the gallstones, we will get a HIDA scan and for the pancreatic head lesion, we will obtain a CA 19-9 level and also we will consult with Gastroenterology as well. 5. Diabetes mellitus. Monitor blood sugar levels. Maintain patient on sliding scale insulin. 6 Dementia. Use antipsychotics for agitation as well as supportive care. 7. Hypertension. Stable. 8. Tobacco use history. Nicotine patch recommended. 9. Deep vein thrombosis prophylaxis. Lovenox. 10. Gastrointestinal prophylaxis. PPI. cc: Roman Boles MD MTDD
--- NOTE | 2018-11-10 15:15 | GASTROENTEROLOGY CONSULTATION ---
DATE: 11/10/2018 CONSULTING PHYSICIAN: Dr. Boles. REASON FOR CONSULTATION: Mass, head of the pancreas. HISTORY: This is a 67-year-old gentleman with multiple medical problems, admitted to the hospital on 11/07/2018 after he sustained a fall and was found to have a trochanteric fracture. During admission, workup was done which included lab work which showed elevated liver enzymes with lead to further investigation including an ultrasound of the abdomen, CT scan of the abdomen, and MRI of the abdomen for a possible mass in the head of the pancreas. The patient reports that he has not had any abdominal symptoms. He denies abdominal pain. He denies nausea or vomiting. He is tolerating his diet well. He tells me that his appetite has been good. He has not lost any weight, although he has history of vascular dementia too. At this point, he reports no GI symptoms. He has not had any fever or chills. Denies any headache or dizziness. Denies any cough, sputum, hemoptysis. Has not had any dysuria, polyuria, or hematuria. He tells me that he is not hurting anywhere and wants to go home to his ex-'s. PAST MEDICAL HISTORY/PAST SURGICAL HISTORY: Obtained from the chart which includes diabetes, hypertension, hyperlipidemia, gastroesophageal reflux disease, anxiety disorder, history of chronic pain, and dementia. Apparently, he has had CVA also. Surgery unremarkable. MEDICATIONS: Prior to his hospitalization, he was on Norvasc, BuSpar, glimepiride, lactulose, Prilosec, and oxcarbazepine. ALLERGIES: No known drug allergies. SOCIAL HISTORY: He tells me that he is and currently living with his ex- who has moved in with him to take care of him. He does smoke but does not drink and does not do illicit drugs. FAMILY HISTORY: Noncontributory. REVIEW OF SYSTEMS: As per HPI, as above. PHYSICAL EXAMINATION: General: On examination, he is a very pleasant gentleman. He is awake and alert, responding to questions to some degree. Does have some history of dementia. Vital Signs: Temperature 97.2 degrees, pulse 66 per minute, breathing 16, blood pressure 138/90. Head is atraumatic, normocephalic. Eyes: Conjunctivae are normal. Sclerae anicteric. Nares are patent. No discharge. Mouth has got poor dentition. Otherwise buccal mucosa is moist. Throat is normal. Neck: Supple. No lymphadenopathy or thyromegaly. Chest: Bilaterally symmetrical. It is moving with respirations. Breath sounds audible bilaterally. No rhonchi or crepitations could be heard. Heart: S1 and S2 audible. No murmur could be appreciated. Abdomen is flat, soft. It is nontender. I could not appreciate a mass or visceromegaly. No ascites noted. Bowel sounds are audible. No pedal edema, cyanosis, clubbing was noted. [employer] was grossly intact. No sensory or motor deficit noted. LABS: Reviewed which showed WBC of 10.46, hemoglobin 13.3, hematocrit 39.2, MCV 90.1, platelets were 231,000. Sodium 139, potassium 3.3, chloride 103, bicarb is 23, BUN is 20, creatinine 0.8, glucose 112. AST 49, ALT 49, total bilirubin 1.56, alkaline phosphatase 746. Ferritin level was 524. Hepatitis profile was negative for hepatitis A, B, or C. Pelvic CT done shows fracture through the right greater trochanter. An ultrasound of the abdomen done which showed multiple gallstones but no evidence of cholecystitis. There was a possible nodule in the pancreatic head. Abdominal MRI was done which did not show any mass in the head of the pancreas which was noticed in the ultrasound of the abdomen. IMPRESSION: This is a 67-year-old gentleman who has multiple medical problems including dementia who has presented with fracture of his right greater trochanter, was found to have elevated liver enzymes, which has got more of a biliary picture then hepatocellular injury. The alkaline phosphatase is disproportionately elevated than transaminases. His bilirubin is slightly elevated. However, ultrasound and MRI did not show any evidence of dilated common bile duct but he does have stones in the gallbladder without evidence of acute cholecystitis. HIDA scan is pending to check for acute cholecystitis. The nodule that was seen on ultrasound was not visualized on MRI, which would be more accurate than ultrasound. At this point, a CA-19-9 is pending. Amylase and lipase could be an appropriate test also and also need to evaluate his elevated liver function tests, we will get some basic serology and immunological studies. Depending on that, we will decide further plans. cc: Suleiman Acosta MD
[2018-11-10 16:21] LABS: UNBOUND IRON 170 ug/dL (112-346)
[2018-11-10 16:29] LABS: TOTAL IRON 33 ug/dL (53-167)
[2018-11-10 16:31] LABS: IRON SATURATION 16 %; TIBC 203 ug/dL
[2018-11-10] MEDS: LIPITOR PO SCH (23:42)
[2018-11-11] MEDS: CALMOSEPTINE OINTMENT TOP SCH ×5 (01:50→20:15)
[2018-11-11] MEDS: PRILOSEC PO SCH (06:25)
[2018-11-11] MEDS: HUMALOG SUBQ SCH ×3 (08:09→16:46)
--- NOTE | 2018-11-11 14:32 | PROGRESS NOTE ---
DATE: 11/11/2018 SUBJECTIVE: The patient is resting in bed, not in any obvious distress. OBJECTIVE: Vital signs: Temperature is 98 degrees, pulse 70, respirations 18, blood pressure is 155/86, oxygen saturation is 97%. HEENT: Atraumatic, normocephalic. Cardiovascular: S1, S2. Respiratory system: Has evidence of good air entry bilaterally. Abdomen: Soft, nontender. No masses felt. Extremities: No evidence of edema. Central nervous system: No obvious focal deficit noted. LABORATORY DATA: None except a blood sugar of 101. ASSESSMENT AND PLAN: 1. Right greater trochanteric fracture. No plans for surgery at this time. 2. Acute diastolic heart failure. Monitor intakes and outputs, as well as daily weights. Use diuretics as needed. 3. Abnormal liver function tests. Abdominal ultrasound indicates numerous gallstones. HIDA scan is currently pending. Hepatitis panel is negative. ADRIANA level is negative. 4. Pancreatic head lesion. CA-19 level is currently pending. MRI of the abdomen does not reveal any such lesion in the pancreas. The patient has been followed up by the GI team. 5. Diabetes mellitus. Monitor blood sugar levels as well as maintain the patient on sliding- scale insulin. 6. Dementia. Use antipsychotics for agitation as well as maintain the patient on supportive care. 7. Hypertension. Optimize blood pressure control. 8. Tobacco use history. Nicotine patch recommended. 9. Deep vein thrombosis prophylaxis. Lovenox. 10. Gastrointestinal prophylaxis. Proton pump inhibitor. cc: Roman Boles MD
--- NOTE | 2018-11-11 15:16 | GASTROENTEROLOGY PROGRESS NOTE ---
DATE: 11/11/2018 SUBJECTIVE: Patient is awake and alert. He is asking for something to eat. He has a HIDA scan ordered for today. He denies abdominal pain. OBJECTIVE: Vital Signs: Temperature 98 degrees, pulse 70, respirations 18, blood pressure 155/86. General: Patient is in no acute distress. Respiratory: Lung sounds essentially clear. Cardiovascular: Regular rate and rhythm. Abdomen: Soft, nontender. Positive bowel sounds. LABORATORY: Hematology: WBC 10.46, hemoglobin 13.3, hematocrit 39.2, MCV 90.1, platelets 231,000. Chemistry: Sodium 139, potassium 3.3, chloride 103, CO2 of 23, BUN 20, creatinine 0.8. Total bilirubin 1.56, AST 49, ALT 49, alkaline phosphatase 746. His labs were done on 11/08/2018. Immunology: ADRIANA was negative. Serology: Hepatitis panel was nonreactive. ASSESSMENT AND PLAN: 1. Right greater trochanteric fracture. No plans for surgery. 2. Abnormal liver function tests. Patient has had workup that shows gallstones, also a small hyperechoic nodule in the pancreatic head. The patient has had MRI but did not show any nodule in the pancreas but patient has a HIDA scan scheduled for today. CA-19-9 has been ordered, waiting on results. Will continue to follow. Repeat liver function tests tomorrow. Follow up on results of HIDA scan. Further plans to be made as needed. I have discussed this case with Dr. Acosta. Dictated by JUSTICE Barnes for Suleiman Acosta MD cc: JUSTICE Epperson MD
[2018-11-11] MEDS: NEURONTIN PO SCH ×3 (15:56→20:13)
--- NOTE | 2018-11-11 16:25 | Diag Imaging Result Doc PS360 ---
EXAM: HIDA SCAN W/O EJECT. FRACTION HISTORY: r/o biliary dyskinesia TECHNIQUE: Nuclear medicine HIDA scan COMPARISON: None. FINDINGS: 3.9 mCi Choletec administered. There is normal uptake within the liver. Normal filling of the gallbladder. Normal emptying into the small bowel. IMPRESSION: Normal HIDA scan. Electronically signed by Amrit Mccurdy 11/11/2018 4:23 PM
[2018-11-11] MEDS: NORVASC PO SCH (16:50)
[2018-11-11] MEDS: ASPIRIN PO SCH (16:50)
[2018-11-11] MEDS: BUSPAR PO SCH (16:50)
[2018-11-11] MEDS: LASIX PO SCH (16:50)
[2018-11-11] MEDS: LOVENOX SUBQ SCH (16:51)
[2018-11-11] MEDS: NICODERM PATCH TD SCH (16:51)
[2018-11-11] MEDS ORDERED: HALDOL IM PRN (20:03)
[2018-11-11] MEDS: LIPITOR PO SCH (20:13)
[2018-11-11] MEDS ORDERED: TRILEPTAL PO SCH (21:00)
[2018-11-12] MEDS: HUMALOG SUBQ SCH ×3 (02:09→10:52)
[2018-11-12] MEDS: CALMOSEPTINE OINTMENT TOP SCH ×2 (02:11→08:08)
[2018-11-12 06:28] LABS: BASO# 0.12 X1000 (0.0-0.2); BASO% 1.3 % (0.0-0.8); EOS# 1.74 X1000 (0.0-0.7); HEMATOCRIT 37.5 % (42.0-52.0); HEMOGLOBIN 12.5 g/dL (14.0-18.0); IMM GRAN# 0.06 X1000 (0.0-0.04); IMM GRAN% 0.7 % (0.0-0.5); LYMPH# 1.88 X1000 (1.2-3.4); LYMPH% 20.6 % (20.5-51.1); MCH 30.2 PG (27-31); MCHC 33.3 g/dL (33-37); MCV 90.6 FL (81-99); MONO# 0.97 X1000 (0.11-0.59); MONO% 10.6 % (1.7-9.3); NEUT# 4.37 X1000 (1.4-6.5); NEUT% 47.8 % (42.2-75.2); PLT 247 X1000 (130-400); RBC 4.14 XMIL (4.7-6.1); RDW 14.7 % (11.5-14.5); WBC 9.14 X1000 (4.8-10.8)
[2018-11-12 06:42] LABS: AGAP 12; ALB/GLOB RATIO 0.6; ALKALINE PHOSPHATASE 774 U/L (32-122); BUN 19 mg/dL (8-22); CALCIUM 8.6 mg/dL (8.8-10.2); CHLORIDE 102 mmol/L (98-107); COSMO 280; CREATININE 0.8 mg/dL (0.7-1.2); ESTIMATED GFR > 60; GLUCOSE 98 mg/dL (70-104); GOT 82 U/L (10-34); GPT 70 U/L (10-44); POTASSIUM 3.2 mmol/L (3.5-5.1); SODIUM 139 mmol/L (136-145); TCO2 25 mmol/L (25-35); TOTAL BILIRUBIN 1.99 mg/dL (0.20-1.00); TOTAL PROTEIN 7.7 g/dL (6.3-8.3)
[2018-11-12] MEDS: PRILOSEC PO SCH (06:54)
[2018-11-12] MEDS: BUSPAR PO SCH (08:07)
[2018-11-12] MEDS: ASPIRIN PO SCH (08:07)
[2018-11-12] MEDS: NEURONTIN PO SCH ×2 (08:07→15:26)
[2018-11-12] MEDS: LASIX PO SCH (08:07)
[2018-11-12] MEDS: NORVASC PO SCH (08:07)
[2018-11-12] MEDS: LOVENOX SUBQ SCH (08:07)
[2018-11-12] MEDS: NICODERM PATCH TD SCH (08:07)
--- NOTE | 2018-11-12 13:25 | DISCHARGE SUMMARY ---
ADMISSION DATE: 11/07/2018 DISCHARGE DATE: 11/12/2018 DISPOSITION: [facility] in [place]. FOLLOW-UP: 1. Dr. Acosta. 2. Dr. Morales. 3. Medical staff at the rehab center. CONSULTATIONS DURING THIS ADMISSION: 1. Orthopedics was consulted. Patient was seen by Dr. Morales. 2. GI was consulted. Patient was seen by Dr. Acosta. INVASIVE PROCEDURES DONE DURING THIS ADMISSION: None. IMAGING STUDIES OF SIGNIFICANCE: 1. Chest x-ray was done which showed cardiomegaly and mild pulmonary vascular congestion. 2. Pelvis CT scan showed fracture through the right greater trochanter. 3. An ultrasound of the abdomen show numerous gallstones in the gallbladder. No definite cholecystitis. Small hypoechoic nodule in the pancreas, significance uncertain. 4. An MRI of the abdomen showed no discrete pancreatic head lesion. 5. HIDA scan showed normal HIDA scan. 6. Echocardiogram showed an ejection fraction of 50%. ADMISSION DIAGNOSES: 1. Right greater trochanteric fracture. 2. Acute pulmonary edema. 3. Pancreatic nodule. 4. Dementia. DIAGNOSES AT THE TIME OF DISCHARGE: 1. Right greater trochanteric fracture as a result of mechanical fall. The patient was evaluated by Orthopedics. The plan was to continue nonsurgical intervention. 2. Diabetes mellitus. 3. History of tobacco abuse. 4. History of vascular dementia. 5. Cholelithiasis with no evidence of cholecystitis. 6. Chronic transaminitis. Etiology is unclear. Could be drug-induced liver injury, however, other secondary possible etiologies need to be ruled out. GI is on board and patient will follow up with them for now. Serology seems to be negative. Ferritin is minimally elevated, but not enough to suggest hemochromatosis. Ceruloplasmin is minimally elevated, but not enough to suggest anything like Michael disease. I think somewhere along the line Mr. Castro will potentially need a liver biopsy. DISCHARGE MEDICATIONS: 1. Glimepiride 4 mg daily. 2. Omeprazole 40 mg daily. 3. Buspirone 10 mg daily. 4. Amlodipine 5 mg daily. 5. Lactulose 10 mg b.i.d. 6. Oxcarbazepine 300 p.o. at bedtime. 7. Furosemide 40 mg daily. 8. Gabapentin 600, 3 times per day. 9. Aspirin 81 mg. PRESENTING COMPLAINT: Fall and injury to the right hip. HISTORY OF PRESENTING COMPLAINT: Mr. Castro is a 67-year-old gentleman with multiple comorbidities including vascular dementia, previous CVAs, hypertension, and diabetes who came to the emergency department after sustaining a fall. On presentation, patient was evaluated and initial CT scan of the pelvis showed a displaced comminuted fracture of the right greater trochanteric. The patient was admitted for further medical evaluation and management. HOSPITAL COURSE: Orthopedics was consulted. Patient was seen by Dr. Morales who recommended nonsurgical intervention. The patient did receive physical therapy during the hospital course, last was yesterday. Mr. Castro was also evaluated by GI because of dilated CBD and elevated liver enzymes. MRI of the abdomen was unremarkable. There were some serologies that were all sent and we are pending the final results on those. The patient will follow up with Dr. Acosta on outpatient basis for further evaluation of the liver enzymes. This morning Mr. Castro referred to be doing a lot better. Still has some pains in the right hip. His current vitals show blood pressure is 159/99, pulse is 65, respirations 20, temperature 98.5 degrees. The patient is saturating 98%. Physical exam is unremarkable except for the pain in the right hip. The patient has finished eating his lunch and he is tolerating it well. He also has normal bowel movement. He is clinically stable for discharge to the rehab to continue with physical nondenominational. All the discharge instructions have been discussed with Mr. Castro and he voiced understanding. TIME SPENT: Time spent for discharge is 37 minutes. cc: Randall Crowe MD
--- NOTE | 2018-11-12 15:13 | GASTROENTEROLOGY PROGRESS NOTE ---
DATE: 11/12/2018 SUBJECTIVE: The patient is awake and alert, no acute distress. He is sitting up in a chair. He denies abdominal pain. HIDA scan was normal. OBJECTIVE: Vital Signs: Temperature 98.5 degrees, pulse 65, respirations 20, blood pressure 159/99. General: Patient is awake, alert, no acute distress. Abdominal Exam: Nontender, nondistended. Positive bowel sounds, soft. LABORATORY: Hematology: WBC 9.14, hemoglobin 12.5, hematocrit 37.5, MCV 90.6. Chemistry: Sodium 139, potassium 3.2, chloride 102, CO2 25. BUN 19, creatinine 0.8, glucose 98. Total bilirubin 1.9,9 AST 82, ALT 70, alkaline phosphatase 774. ASSESSMENT AND PLAN: 1. Right greater trochanteric fracture. Patient has been seen by Orthopedics with no plans for surgery at this time. 2. Abnormal liver function test. Ultrasound showed numerous gallstones. HIDA scan was normal. Hepatitis panel was negative. Autoimmune test negative. 3. Other medical problems: Diabetes, dementia, hypertension. Continue current management. Will continue to follow liver function tests. I have discussed this case with Dr. Acosta. Further plans to be made according to his progress. Dictated by JUSTICE Barnes for Suleiman Acosta MD cc: JUSTICE Epperson MD
[2018-11-12 16:16] VITALS: BP 157/90
== END 2018-11-12 18:24 | DRG 535 ==
LOC: ED 15:11 → SUATTDRO 17:55 → EDIPHOLD 17:55 → 4N 20:51
PROVIDERS: ATTEND Internal Medicine
CPT/HCPCS: 71010; 71045; 72192; 74181; 76700; 78226; 80053; 80074; 81001; 82248; 82390; 82728; 82948; 83036; 83516; 83540; 83550; 83880; 84484; 85025; 86038; 86039; 86301; 93005; 93306; 93923; 96360; 96361; 97110; 97162; 97530; 99285; A9270; A9537; C8929; J1650; J7030; Q9957; XXXXX

== ENCOUNTER 2019-02-13 22:41 | Inpatient (IN) ==
[2019-02-13] MEDS ORDERED: LABETALOL IV ONE (22:50)
[2019-02-13] MEDS ORDERED: MORPHINE IV ONE (22:50)
[2019-02-13 23:12] LABS: BASO# 0.13 X1000 (0.0-0.2); BASO% 1.7 % (0.0-0.8); EOS% 14.1 % (0.0-10.0); HEMATOCRIT 41.2 % (42.0-52.0); HEMOGLOBIN 13.6 g/dL (14.0-18.0); LYMPH# 1.45 X1000 (1.2-3.4); LYMPH% 18.5 % (20.5-51.1); MCH 30.9 PG (27-31); MCV 93.6 FL (81-99); MONO# 0.52 X1000 (0.11-0.59); MONO% 6.6 % (1.7-9.3); MPV 10.1 FL (7.4-10.4); NEUT# 4.62 X1000 (1.4-6.5); NEUT% 59.1 % (42.2-75.2); PLT 248 X1000 (130-400); RDW 13.9 % (11.5-14.5); WBC 7.82 X1000 (4.8-10.8)
--- NOTE | 2019-02-13 23:22 | EKG Report ---
Test Performed on : 02/13/2019 11:16:21 PM Test Reason : htn Blood Pressure : / mmHG Vent. Rate : 087 BPM Atrial Rate : 087 BPM P-R Int : 152 ms QRS Dur : 098 ms QT Int : 390 ms P-R-T Axes : 021 -58 070 degrees QTc Int : 469 ms Normal sinus rhythm. Left anterior fascicular block Cannot rule out Inferior infarct (cited on or before 19-SEP-2018) Anterolateral infarct (cited on or before 19-SEP-2018) Abnormal ECG When compared with ECG of 20-SEP-2018 06:48, Vent. rate has increased BY 32 BPM T wave inversion no longer evident in Inferior leads T wave inversion less evident in Lateral leads Unconfirmed Result
[2019-02-13 23:33] LABS: AGAP 10; ALB/GLOB RATIO 0.7; ALBUMIN 3.4 g/dL (3.5-5.0); BUN 21 mg/dL (8-22); CALCIUM 9.6 mg/dL (8.8-10.2); CHLORIDE 104 mmol/L (98-107); COSMO 293; CREATININE 0.8 mg/dL (0.7-1.2); ESTIMATED GFR > 60; GLUCOSE 220 mg/dL (70-104); GOT 104 U/L (10-34); GPT 93 U/L (10-44); POTASSIUM 3.4 mmol/L (3.5-5.1); SODIUM 142 mmol/L (136-145); TCO2 28 mmol/L (25-35); TOTAL BILIRUBIN 1.11 mg/dL (0.20-1.00)
[2019-02-13 23:51] LABS: ALKALINE PHOSPHATASE 1821 U/L (32-122)
--- NOTE | 2019-02-14 00:04 | PROVIDER DOCUMENTATION ---
This chart was entered by Radha Huff Scribe, acting as scribe for Chacorta Mcadams MD. HPI-General Adult - General Stated Complaint: htn Time Seen by Provider: 02/13/19 22:43 Source: patient Allergies/Adverse Reactions: Patient Allergies Allergy/AdvReac Type Severity Reaction Status Date / Time No Known Allergies Allergy Verified 11/07/18 15:30 Home Medications: Home Medication List Medication Instructions Recorded Confirmed Last Taken Type Glimepiride 4 mg PO DAILY 06/09/13 11/07/18 09/10/18 History Buspirone [Buspar] 10 mg PO DAILY #30 tablet 01/26/16 11/07/18 09/10/18 Rx Omeprazole [Prilosec] 40 mg PO DAILY@0700 #0 capsule 01/26/16 11/07/18 09/17/18 Rx Amlodipine [Norvasc] 5 mg PO DAILY tab 09/20/18 11/07/18 Unknown Rx Lactulose 10 gm PO BID 11/07/18 11/07/18 Unknown History Oxcarbazepine 300 mg PO QHS 11/07/18 11/07/18 Unknown History ATORVAstatin [Lipitor] 10 mg PO QHS tab 11/12/18 Unknown Rx Amlodipine [Norvasc] 5 mg PO DAILY tab 11/12/18 Unknown Rx Aspirin 81 mg PO DAILY chewtab 11/12/18 Unknown Rx Buspirone [Buspar] 10 mg PO DAILY tab 11/12/18 Unknown Rx Furosemide [Lasix] 40 mg PO DAILY tab 11/12/18 Unknown Rx Gabapentin [Neurontin] 600 mg PO TID@0900,1500,2100 tab 11/12/18 Unknown Rx Omeprazole [Prilosec] 40 mg PO DAILY@0700 cap 11/12/18 Unknown Rx - History of Present Illness -Gen Adult Nature of Presenting Problems: pt is a 68 yr old male presenting via EMS with complaint of HTN x 2 days, [facility] health nurse reported BP of 160/120, hx of 13 CVAs. when asked pt admits pain all over. EMS reports no recent medication changes. Location of Pain/Injury: reports: generalized Severity: reports: moderate Onset/Duration: reports: 2 days ago Timing: reports: still present Context/Activities at Onset: reports: rest Modifying Factors: improves with: nothing Associated Symptoms: reports: muscle aches, other (HTN). denies: chest pain, fever/chills, headaches, vomiting Similar Symptoms Previously?: Yes Recently seen or treated by another doctor?: No Review of Systems - Adult - REVIEW OF SYSTEMS - ADULT ROS:: limited per condition (pt is essentially non verbal, mumbles simple answ ers) Constitutional: denies: fever Eyes: reports: no symptoms reported Ears, Nose, Mouth & Throat: reports: no symptoms reported Cardiovascular: denies: chest pain, edema Respiratory: reports: no symptoms reported Gastrointestinal: denies: diarrhea, vomiting Genitourinary: reports: no symptoms reported Musculoskeletal: reports: muscle aches Integumentary: reports: no symptoms reported Neurological: denies: headache/migraines Psychiatric: reports: no symptoms reported Endocrine: reports: no symptoms reported Hematologic/Lymphatic: reports: no symptoms reported Allergic/Immunologic: reports: no symptoms reported All Other Systems: Reviewed and Negative Past History - Adult - PAST MEDICAL HISTORY-ADULT Review of Records: reports: Old Records Reviewed, Nursing Assessment Review, Medications Reviewed, Social history reviewed & non-contributory. Major Childhood Illnesses: reports: denies history Cardiovascular: reports: HTN Respiratory: reports: denies history Gastrointestinal: reports: denies history Obstetrical/Gynecological: reports: denies history Genitourinary: reports: denies history Musculoskeletal: reports: denies history Neurological: reports: CVA (13), dementia, TIA Endocrine/Immune: reports: Diabetes Other Conditions: reports: denies history - PRIOR SURGERIES/PROCEDURES Surgical/Procedure History: reports: none - IMMUNIZATION STATUS Childhood Immunizations: See Nurse Assessment Flu Vaccine: See Nurse Assessment - FAMILY HISTORY Family History: reviewed, not pertinent - SOCIAL HISTORY Living Situation: family Physical Exam-General - PHYSICAL EXAM-ADULT Initial Vital Signs Reviewed: Yes - CONSTITUTIONAL General Appearance: alert, no apparent distress - HEAD, EARS, NOSE, MOUTH & THROAT HENMT: normocephalic/atraumatic, moist mucous membranes - NECK Neck: full range of motion, supple, normal inspection - RESPIRATORY Respiratory: lungs clear, normal breath sounds, no respiratory distress, no accessory muscle use - CARDIOVASCULAR Cardiovascular: normal peripheral pulses, regular rate, rhythm - GASTROINTESTINAL (ABDOMEN) Abdominal Exam: normal bowel sounds, non tender, soft - LYMPHATIC Lymphatic: no adenopathy - MUSCULOSKELETAL Back Exam: normal inspection Extremity: non-tender, normal inspection - SKIN Integumentary: normal color, normal turgor, warm/dry Progress - PLAN OF CARE/RESULTS Progress/Plan/Lab Results: Orders Category Date Time Status Nursing- Obtain EKG ONCE Care 02/13/19 22:49 Active CBC WITH ELECTRONIC DIFF [HEME] Stat Lab 02/13/19 22:49 Uncollected COMPREHENSIVE METABOLIC PANEL [CHEM] Stat Lab 02/13/19 22:49 Uncollected TROPONIN T Stat Lab 02/13/19 22:49 Uncollected Labetalol Med 02/13/19 22:50 Discontinued 10 mg IV NOW ONE Morphine Med 02/13/19 22:50 Discontinued 4 mg IV NOW ONE EKG [EKG] Stat Ther 02/13/19 22:49 Ordered Result Diagrams: 02/13/19 23:00 02/13/19 23:00 Departure - Departure Date of Disposition Decision: 02/14/19 Time of Disposition Decision: 00:04 DIAGNOSIS: Fall Qualifiers: Encounter type: initial encounter Qualified Code(s): W19.XXXA - Unspecified fall, initial encounter Hypertension Qualifiers: Hypertension type: essential hypertension Qualified Code(s): I10 - Essential (primary) hypertension Disposition: ADMITTED INPATIENT 09 Certified Medical Emergency: Emergent Condition: Stable Referrals and Follow-Ups: None,PCP [Primary Care Provider] - - Critical Care Note This patient required my direct & personal management of CC.: No Attestation - Physician/ TIFFANIE Attestation Patient care was provided by Advanced Practice Provider:: No The physician spent face to face time with patient:: Yes Advanced Practice Provider documentation review:: Supervising physician onsite and consulted in the evaluation and care of this patient. The physician did have a face to face encounter with the patient. This chart was documented by the indicated scribe, (Radha Huff Scribe) and accurately reflects the services I performed and decisions made by me, Chacorta Mcadams MD, as attested by the provider's signature.
--- NOTE | 2019-02-14 00:56 | HISTORY AND PHYSICAL ---
PRIMARY CARE PHYSICIAN: Unknown. CHIEF COMPLAINT: Falls, elevated blood pressure. HISTORY OF PRESENTING ILLNESS: A 68-year-old male with a history of CVA, vascular dementia, hypertension, diabetes mellitus type 2, pancreatic head nodule, and recent right greater trochanteric fracture who, apparently, was at rehab and had been sent home. However, family brought patient back to the emergency department due to patient having more falls. The patient is a poor historian, no family was around. Most of the history is obtained from the ER charting and previous records. At the time of my examination, the patient states he feels okay, however, was not providing any other information. PAST MEDICAL HISTORY: CVA, vascular dementia, hypertension, diabetes mellitus type 2, hyperlipidemia, GERD, pancreatic head nodule, right greater trochanteric fracture. PAST SURGICAL HISTORY: None. ALLERGIES: No known drug allergies. CURRENT MEDICATIONS: Aspirin 81 mg p.o. daily, BuSpar 10 mg p.o. daily, Flexeril 10 mg p.o. daily, Lasix 40 mg p.o. daily, gabapentin 600 mg p.o. t.i.d., omeprazole 40 mg p.o. daily, oxcarbazepine 300 mg p.o. at bedtime. SOCIAL HISTORY: He is a smoker. No history of alcohol or illicit drug use. FAMILY HISTORY: No history of coronary disease. REVIEW OF SYSTEMS: Fourteen-point review of system is as in HPI; however, is limited. PHYSICAL EXAMINATION: GENERAL: The patient is resting comfortably. VITAL SIGNS: Temperature 98.4 degrees, pulse 86, respiration 18, blood pressure 157/113. HEENT: Atraumatic, normocephalic. PERRLA. NECK: No masses. CHEST: Clear to auscultation. CARDIOVASCULAR: Regular rate and rhythm. ABDOMEN: Soft. Positive bowel sounds. EXTREMITIES: No edema. NEUROLOGIC: He is awake, alert, oriented x1. GENITOURINARY: No bladder distention. SKIN: Warm. LABORATORIES AND STUDIES: WBCs 7.82, hemoglobin 13.6, hematocrit 41.2, platelets 248,000. Sodium 142, potassium 3.4, chloride 104, CO2 is 28, BUN is 21, creatinine 0.8. Glucose 220. ASSESSMENT: A 68-year-old male with a history of cerebrovascular accident, vascular dementia, hypertension, diabetes mellitus type 2, who was brought to the emergency department due to patient having recurrent falls. He was evaluated the emergency department, it was noted that his blood pressure was also mildly elevated. Due to his presenting symptoms, we will place him for observation for further evaluation and management assessment. 1. Status post falls. 2. Mild hypokalemia. 3. Hypertension uncontrolled. 4. Diabetes mellitus type 2. 5. Dementia. PLAN: 1. We will admit patient to medical floor with telemetry. 2. We will check orthostatic blood pressure and pulse. 3. We will optimize his electrolytes and given him potassium. 4. Monitor blood pressure closely, resume antihypertensive agent. 5. Put patient on glycemic protocol with sliding scale insulin regimen. 6. Restart other home medications. 7. We will consult social service for possible placement. 8. Put patient on DVT prophylaxis with SCDs. 9. We will continue to follow and reassess, make further recommendations based on patient's clinical course. cc: Reuben Garcia MD
[2019-02-14] MEDS ORDERED: ZOFRAN IV PRN ×2 (03:02→15:39)
[2019-02-14] MEDS: HUMULIN R SUBQ SCH ×5 (05:37→21:35)
[2019-02-14] MEDS ORDERED: TYLENOL PO PRN (15:39)
--- NOTE | 2019-02-14 16:20 | Diag Imaging Result Doc PS360 ---
MRI BRAIN W/WO CONTRAST - 02/14/2019 INDICATION: ams COMPARISON: 01/24/2016 FINDINGS: There is moderate patient motion artifact. There is no area of restricted diffusion. There is advanced cerebral atrophy. There is advanced periventricular white matter chronic microvascular disease. This appears grossly stable from prior. No intracranial mass or hemorrhage. No area of abnormal contrast enhancement. IMPRESSION: Cerebral atrophy and chronic microvascular disease. No acute process. Electronically signed by Joey Guzman 02/14/2019 4:19 PM
--- NOTE | 2019-02-14 17:00 | PROGRESS NOTE ---
DATE: 02/14/2019 SUBJECTIVE: Patient has no major complaints. OBJECTIVE: Vital Signs: Blood pressure is 182/106, heart rate is 60, respiratory rate 18, temperature 98.6 degrees. Cardiovascular: Regular rate and rhythm. Pulmonary: Bilateral breath sounds clear to auscultation. Gastrointestinal: Soft, nontender, nondistended. Bowel sounds are positive. Nonfocal exam. LABORATORY DATA: I do not have any new data today. PROBLEM LIST: Encephalopathy. I am not sure how far from baseline he is. He has some degree of dysarthria. With his level of hypertension and confusion and he has cerebrovascular accident with vascular dementia, I am not sure about how much above baseline he is. I am going to go ahead and repeat an MRI just to make sure he has not had a stroke, and we will continue to follow. I may need a Neurology opinion, but that may not be available for several days now. He has significant frequent falls. DISPOSITION: He just got out of rehabilitation and went home and now has come back for evaluation. We will discuss with family their current plans and follow accordingly. cc: Jonathan Zuluaga MD
[2019-02-14] MEDS: NEURONTIN PO SCH (21:34)
[2019-02-14] MEDS: TRILEPTAL PO SCH (21:35)
[2019-02-14] MEDS: LACTULOSE PO SCH (21:35)
[2019-02-15] MEDS: PRILOSEC PO SCH ×2 (05:53→06:02)
[2019-02-15] MEDS: HUMULIN R SUBQ SCH ×4 (06:02→21:30)
[2019-02-15 06:21] LABS: BASO# 0.17 X1000 (0.0-0.2); HEMATOCRIT 40.9 % (42.0-52.0); HEMOGLOBIN 13.5 g/dL (14.0-18.0); IMM GRAN# 0.02 X1000 (0.0-0.04); IMM GRAN% 0.2 % (0.0-0.5); LYMPH# 2.82 X1000 (1.2-3.4); LYMPH% 33.3 % (20.5-51.1); MCH 30.8 PG (27-31); MCV 93.2 FL (81-99); MONO# 0.74 X1000 (0.11-0.59); MONO% 8.7 % (1.7-9.3); MPV 10.6 FL (7.4-10.4); NEUT# 3.03 X1000 (1.4-6.5); NEUT% 35.8 % (42.2-75.2); PLT 250 X1000 (130-400); RBC 4.39 XMIL (4.7-6.1); RDW 13.7 % (11.5-14.5); WBC 8.48 X1000 (4.8-10.8)
[2019-02-15 06:41] LABS: AGAP 10; BUN 16 mg/dL (8-22); CHLORIDE 100 mmol/L (98-107); COSMO 280; ESTIMATED GFR > 60; GLUCOSE 93 mg/dL (70-104); POTASSIUM 3.1 mmol/L (3.5-5.1); SODIUM 140 mmol/L (136-145); TCO2 30 mmol/L (25-35)
[2019-02-15 07:08] LABS: ALB/GLOB RATIO 0.8; ALBUMIN 3.4 g/dL (3.5-5.0); DIRECT BILIRUBIN 0.6 mg/dL (0.00-0.20); TOTAL BILIRUBIN 1.2 mg/dL (0.20-1.00); TOTAL PROTEIN 7.8 g/dL (6.3-8.3)
[2019-02-15] MEDS ORDERED: FLEXERIL PO SCH (09:00)
[2019-02-15] MEDS: ASPIRIN PO SCH (10:42)
[2019-02-15] MEDS: LASIX PO SCH (10:42)
[2019-02-15] MEDS: BUSPAR PO SCH (10:42)
[2019-02-15] MEDS: NEURONTIN PO SCH ×3 (10:43→21:31)
[2019-02-15] MEDS: LACTULOSE PO SCH ×2 (10:43→21:31)
--- NOTE | 2019-02-15 18:16 | PROGRESS NOTE ---
DATE: 02/15/2019 SUBJECTIVE: The patient is doing okay. I am not really entirely sure he is that far from baseline. He is not having any major complaints. He is at a stable level of confusion. PHYSICAL EXAMINATION: vital signs: Blood pressure is 141/85, heart rate of 57, respiratory rate of 18, temperature 97.4 degrees, 95% on room air. Cardiovascular: Regular rate and rhythm. Pulmonary: Bilateral breath sounds. Clear to auscultation. Gastrointestinal: Soft, nontender, nondistended. Bowel sounds are positive. LABORATORY DATA: White count 8, hemoglobin and hematocrit 13 and 40, platelets 250,000. Potassium is 3.1. AST and ALT are elevated. Alkaline phosphatase is 1668. PROBLEMS: 1. Vascular dementia. I am not entirely certain how far off baseline he is. He does not seem to be too far off baseline. 2. Elevated liver enzymes with unclear etiology. His liver enzymes have been elevated before, and he has had a workup for chronically-elevated liver enzymes and it has been negative for any major issues. I do not know if his alkaline phosphatase being elevated may be related to other causes of alkaline phosphatase which include Paget's disease which he would be the right age for. He does have cholelithiasis. We will continue to follow closely. cc: Jonathan Zuluaga MD [facility]
[2019-02-15] MEDS: KLOR-CON PO SCH (21:31)
[2019-02-15] MEDS: TRILEPTAL PO SCH (21:31)
[2019-02-16 06:04] LABS: BASO# 0.18 X1000 (0.0-0.2); BASO% 1.9 % (0.0-0.8); EOS# 1.71 X1000 (0.0-0.7); EOS% 18.5 % (0.0-10.0); HEMATOCRIT 39.5 % (42.0-52.0); HEMOGLOBIN 13.2 g/dL (14.0-18.0); IMM GRAN# 0.02 X1000 (0.0-0.04); IMM GRAN% 0.2 % (0.0-0.5); LYMPH# 2.73 X1000 (1.2-3.4); LYMPH% 29.5 % (20.5-51.1); MCH 30.8 PG (27-31); MCHC 33.4 g/dL (33-37); MCV 92.1 FL (81-99); MONO# 0.72 X1000 (0.11-0.59); MONO% 7.8 % (1.7-9.3); MPV 9.9 FL (7.4-10.4); NEUT% 42.1 % (42.2-75.2); PLT 243 X1000 (130-400); RBC 4.29 XMIL (4.7-6.1); RDW 13.5 % (11.5-14.5); WBC 9.26 X1000 (4.8-10.8)
[2019-02-16] MEDS: HUMULIN R SUBQ SCH ×4 (06:22→23:10)
[2019-02-16] MEDS: PRILOSEC PO SCH (06:34)
[2019-02-16 06:58] LABS: AGAP 11; BUN 19 mg/dL (8-22); CALCIUM 9.3 mg/dL (8.8-10.2); CHLORIDE 101 mmol/L (98-107); COSMO 279; CREATININE 0.8 mg/dL (0.7-1.2); ESTIMATED GFR > 60; GLUCOSE 92 mg/dL (70-104); MAGNESIUM 1.9 mg/dL (1.5-2.7); POTASSIUM 3.6 mmol/L (3.5-5.1); SODIUM 139 mmol/L (136-145); TCO2 27 mmol/L (25-35)
[2019-02-16] MEDS: ASPIRIN PO SCH (10:16)
[2019-02-16] MEDS: LASIX PO SCH (10:16)
[2019-02-16] MEDS: KLOR-CON PO SCH (10:16)
[2019-02-16] MEDS: NEURONTIN PO SCH ×3 (10:16→23:09)
[2019-02-16] MEDS: BUSPAR PO SCH (10:16)
[2019-02-16] MEDS: LACTULOSE PO SCH ×2 (10:16→23:09)
--- NOTE | 2019-02-16 14:38 | EKG Report ---
Test Performed on : 02/16/2019 11:37:48 AM Test Reason : bradycardia Blood Pressure : / mmHG Vent. Rate : 067 BPM Atrial Rate : 067 BPM P-R Int : 182 ms QRS Dur : 104 ms QT Int : 460 ms P-R-T Axes : 051 -51 -79 degrees QTc Int : 486 ms Normal sinus rhythm. Left anterior fascicular block Minimal voltage criteria for LVH, may be normal variant Cannot rule out Inferior infarct (cited on or before 19-SEP-2018) Anterolateral infarct (cited on or before 19-SEP-2018) Abnormal ECG When compared with ECG of 13-FEB-2019 23:16, (Unconfirmed) T wave inversion now evident in Inferior leads T wave inversion less evident in Anterior leads T wave inversion more evident in Lateral leads Confirmed by Marcie Ashley MD ([id number]) on 02/18/2019 12:06:06 PM
--- NOTE | 2019-02-16 16:24 | PROGRESS NOTE ---
DATE: 02/16/2019 SUBJECTIVE: Patient has no major complaints. He is pleasantly kind of confused. OBJECTIVE: Blood pressure is 156/103, heart rate of 59, respiratory rate 19, temperature 97 degrees, 94% on room air.Cardiovascular: Regular rate and rhythm. Pulmonary: Bilateral breath sounds. Clear to auscultation. GI: Soft, nontender, nondistended. Bowel sounds are positive. LABORATORY DATA: Looks okay. White count 9, hemoglobin and hematocrit 13 and 39, platelets 243,000. Basic was normal. PROBLEM LIST: 1. Vascular dementia. I think he is pretty close to his baseline. 2. Frequent falls. Really uncertain what is causing this. He just got out of rehab and he is not really able to do very much since he got out of rehab or at least he is having issues again so we will continue to monitor. Today he has developed bradycardia. We do not really have a good source for that. He is not really on anything that would necessarily cause problems. EKG is unrevealing so I am going to continue to monitor and will follow. I am not really sure what is causing all these issues. He had an echocardiogram in October which was pretty unremarkable, although he does have some diastolic dysfunction so unclear right now what is going on. Will continue to progress with disposition is stable. Continue to follow. PT today was not really able to do much movement so I am not sure if we are looking for. We will continue to monitor and see how he does. Disposition pending his clinical status. 3. Elevated alkaline phosphatase. I am concerned about possible Paget disease. We will get a bone scan tomorrow. He is not hypercalcemic but his numbers are fairly consistent. cc: Jonathan Zuluaga MD
[2019-02-16 17:08] LABS: SODIUM 137 mmol/L (136-145)
[2019-02-16 17:09] LABS: AGAP 10; ALB/GLOB RATIO 0.7; ALBUMIN 3.4 g/dL (3.5-5.0); ALKALINE PHOSPHATASE 1567 U/L (32-122); BUN 22 mg/dL (8-22); CALCIUM 8.7 mg/dL (8.8-10.2); CHLORIDE 100 mmol/L (98-107); COSMO 279; ESTIMATED GFR > 60; GLUCOSE 126 mg/dL (70-104); GOT 89 U/L (10-34); GPT 80 U/L (10-44); POTASSIUM 3.9 mmol/L (3.5-5.1); TCO2 27 mmol/L (25-35); TOTAL BILIRUBIN 1.21 mg/dL (0.20-1.00); TOTAL PROTEIN 8.2 g/dL (6.3-8.3)
[2019-02-16] MEDS: PRINIVIL PO SCH (18:36)
[2019-02-16] MEDS: TRILEPTAL PO SCH (23:09)
[2019-02-17 06:44] LABS: BASO# 0.11 X1000 (0.0-0.2); BASO% 1.1 % (0.0-0.8); EOS# 1.02 X1000 (0.0-0.7); EOS% 9.9 % (0.0-10.0); HEMOGLOBIN 13.4 g/dL (14.0-18.0); IMM GRAN# 0.03 X1000 (0.0-0.04); IMM GRAN% 0.3 % (0.0-0.5); LYMPH# 2.51 X1000 (1.2-3.4); LYMPH% 24.3 % (20.5-51.1); MCH 30.7 PG (27-31); MCHC 33.5 g/dL (33-37); MCV 91.5 FL (81-99); MONO# 0.95 X1000 (0.11-0.59); MONO% 9.2 % (1.7-9.3); MPV 10.5 FL (7.4-10.4); NEUT% 55.2 % (42.2-75.2); PLT 252 X1000 (130-400); RBC 4.37 XMIL (4.7-6.1); RDW 13.4 % (11.5-14.5); WBC 10.32 X1000 (4.8-10.8)
[2019-02-17] MEDS: PRILOSEC PO SCH (06:53)
[2019-02-17] MEDS: HUMULIN R SUBQ SCH ×4 (06:55→20:36)
[2019-02-17] MEDS: LACTULOSE PO SCH ×2 (09:45→20:34)
[2019-02-17] MEDS: NEURONTIN PO SCH ×3 (09:45→20:35)
[2019-02-17] MEDS: ASPIRIN PO SCH (09:45)
[2019-02-17] MEDS: PRINIVIL PO SCH (09:45)
[2019-02-17] MEDS: BUSPAR PO SCH (09:46)
[2019-02-17] MEDS: LASIX PO SCH (09:46)
--- NOTE | 2019-02-17 14:32 | Diag Imaging Result Doc PS360 ---
EXAM: BONE SCAN LIMITED INDICATION: evaluate for paget's, frequent falls TECHNIQUE: 28.3 mCi of technetium 99 MDP was administered intravenously and images of the pelvis and hips were obtained in usual fashion. COMPARISON: No prior bone scan is available for comparison. FINDINGS: There is increased activity associated with the right hip in the trochanteric and intertrochanteric regions. This likely represents residual activity related to a prior right hip fracture that is seen on a previous CT dated 11/07/2018. It can take up to a year for activity from a fracture to normalize. It may be indistinguishable from a repeat injury, however. Consider evaluation with plain radiograph. No other abnormal activity is identified involving the hips or pelvis. Surrounding soft tissues are unremarkable. IMPRESSION: Increased activity associated with the right hip that is assumed to be residual activity from a fairly recent fracture. Please see above discussion. Electronically signed by Gregory Parra 02/17/2019 2:30 PM
--- NOTE | 2019-02-17 16:30 | PROGRESS NOTE ---
DATE: 02/17/2019 SUBJECTIVE: Patient has no major complaints. OBJECTIVE: Vital Signs: Blood pressure 142/76, heart rate 52, respiratory rate 18, saturation 90 to 100 percent on room air. Cardiovascular: Regular rate and rhythm. Pulmonary: Bilateral breath sounds. Abdomen: Soft, nontender, nondistended. LABORATORY DATA: White count 10, hemoglobin and hematocrit 13 and 40, platelets 252,000. PROBLEM LIST: 1. Vascular dementia is stable. 2. Frequent falls. He is really not getting up and around. I am not sure what the etiology is. He broke his hip and that looks okay. I am not entirely sure what else we are going to do from that standpoint. 3. Elevated liver enzymes. 4. Elevated alkaline phosphatase. 5. Bone scan was really unremarkable. Increased activity is nonspecific. DISPOSITION: He can't walk. He is not eating. We will get a palliative care consult but his family cannot take care of him at this point, and he has no rehab days available, so we are going to have to figure out how we are going to safely be able to get him home. cc: Jonathan Zuluaga MD
[2019-02-17] MEDS: TRILEPTAL PO SCH (20:35)
[2019-02-18] MEDS: HUMULIN R SUBQ SCH ×4 (06:20→20:12)
[2019-02-18] MEDS: PRILOSEC PO SCH (06:27)
--- NOTE | 2019-02-18 07:44 | Diag Imaging Result Doc PS360 ---
EXAM: HIP W/PELVIS BILAT 2 VIEWS INDICATION: recent hip fracture TECHNIQUE: 5 views COMPARISON: None. FINDINGS: There has been a prior right hip arthroplasty. The arthroplasty hardware is in the expected position. There is no radiographic evidence of hardware loosening. There is heterotopic ossification around the hip prosthesis in the soft tissues. There is degenerative arthropathy at the left hip with moderate joint space narrowing and a prominent overhanging acetabular osteophyte. There is no discrete fracture, dislocation, or significant intrinsic osseous lesion, otherwise. The surrounding soft tissues are essentially unremarkable. IMPRESSION: Postsurgical changes on the right and degenerative arthropathy involving the left hip. No definite acute osseous abnormality. Electronically signed by Gregory Parra 02/18/2019 7:41 AM
[2019-02-18] MEDS: ASPIRIN PO SCH (10:17)
[2019-02-18] MEDS: BUSPAR PO SCH (10:18)
[2019-02-18] MEDS: LASIX PO SCH (10:18)
[2019-02-18] MEDS: LACTULOSE PO SCH ×2 (10:18→10:30)
[2019-02-18] MEDS: PRINIVIL PO SCH (10:18)
[2019-02-18] MEDS: NEURONTIN PO SCH (10:18)
--- NOTE | 2019-02-18 11:19 | PROGRESS NOTE ---
DATE: 02/18/2019 SUBJECTIVE: The patient has no major complaints but he is not eating. He is much more lethargic today than he has been per the nursing care. OBJECTIVE: Vital signs: Blood pressure is 123/78, heart rate of 52, respiratory rate 18, temperature 98.3 degrees, 100% on room air. Cardiovascular: Regular rate and rhythm. Pulmonary: Bilateral breath sounds clear to auscultation. Gastrointestinal: Abdomen is soft, nontender, nondistended. Bowel sounds are positive. Neurological: Nonfocal but he is not answering questions like he did previously. PROBLEM LIST: 1. Encephalopathy with unclear etiology. We will continue to follow. He has fairly significant dementia at baseline, but he can usually feed himself and get up and around, and he has not done much of that here. 2. Frequent falls. Unclear what the etiology is. There is no acute stroke. There is no clear evidence of normal-pressure hydrocephalus. 3. Elevated alkaline phosphatase, most likely related to his recent hip surgery. We will continue to monitor those, get a right upper quadrant ultrasound and follow. DISPOSITION: He has no ability for long-term care but his family cannot take care of him because he is to too much to care for I guess, and he has no rehab days, so need to discuss with the family about options. They are going to have to take him home. I have put in for a Palliative Care consult for goals of care because he does have dementia that may qualify him for home hospice. If they need a hospital bed, then we will make that happen and follow. cc: Jonathan Zuluaga MD
[2019-02-18 12:06] LABS: AGAP 12; ALB/GLOB RATIO 0.6; ALBUMIN 3.3 g/dL (3.5-5.0); BUN 21 mg/dL (8-22); CALCIUM 9.5 mg/dL (8.8-10.2); CHLORIDE 101 mmol/L (98-107); COSMO 279; ESTIMATED GFR > 60; GLUCOSE 111 mg/dL (70-104); GOT 77 U/L (10-34); GPT 84 U/L (10-44); POTASSIUM 3.3 mmol/L (3.5-5.1); SODIUM 138 mmol/L (136-145); TCO2 25 mmol/L (25-35); TOTAL BILIRUBIN 1.37 mg/dL (0.20-1.00); TOTAL PROTEIN 8.4 g/dL (6.3-8.3)
[2019-02-18] MEDS ORDERED: NS + KCL 40 MEQ 1,000 ML IV ONE (12:15)
[2019-02-18 12:18] LABS: ALKALINE PHOSPHATASE 1516 U/L (32-122)
[2019-02-18 12:27] LABS: ALLEN TEST YES; BE 3.4 mmoll (-3.0-3.0); BLOOD TYPE ARTERIAL; HCO3-(ACT) 27.5 mmoll (20.0-26.0); METHB 1.3 % (0.0-1.5); O2(CT) 18.7 mL/dL (15.0-23.0); O2HB 95.9 % (95.0-99.0); PCO2(98.6) 36 mmHg (35-45); PO2(98.6) 101 mmHg (60-100); SAMPLE BLOOD; SAO2 99.6 % (95.0-100.0); THB 13.8 g/dL (11.5-17.4); pH(98.6) 7.48 (7.35-7.45)
[2019-02-18 12:28] LABS: MODALITY CANNULA
--- NOTE | 2019-02-18 12:28 | EKG Report ---
Test Performed on : 02/18/2019 12:10:22 PM Test Reason : CAT CALL Blood Pressure : / mmHG Vent. Rate : 062 BPM Atrial Rate : 062 BPM P-R Int : 178 ms QRS Dur : 106 ms QT Int : 470 ms P-R-T Axes : 064 -58 242 degrees QTc Int : 477 ms Normal sinus rhythm. Left anterior fascicular block Cannot rule out Inferior infarct (cited on or before 19-SEP-2018) Anterolateral infarct (cited on or before 19-SEP-2018) Abnormal ECG When compared with ECG of 16-FEB-2019 11:37, No significant change was found Confirmed by Marcie Ashley MD ([id number]) on 02/19/2019 12:25:01 PM
--- NOTE | 2019-02-18 12:45 | PROGRESS NOTE ---
DATE: 02/18/2019 SUBJECTIVE: This is an event note. Called to see patient. CAT call because patient was unresponsive and apneic. He is still very confused. He really will not answer any questions. He opens his eyes and tracks, and then just kind of goes back to sleep. Really unclear what is causing his progression. This has been worse since this morning. Yesterday, he would awaken and move around, answer questions. A couple days ago, he was feeding himself but now that has progressed to where he really cannot do very much of anything. His vitals and all that looked normal. There is a limited neurological exam but I cannot appreciate any acute deficit. His labs, which are pending since last dictation, potassium was 3.3 and the glucose was 126 but nothing very revealing, so it is unclear what is causing these intermittent episodes of confusion. He does have this underlying chronic liver disease, which has also never really been explained. He has cholelithiasis but the rest of his testing is normal. Elevated alkaline phosphatase. We will continue to follow but most likely related to his hip fracture. I am going to get a neurology opinion. We will get a repeat head CT and follow. Based on his liver enzymes, we may need to do additional testing. cc: Jonathan Zuluaga MD
--- NOTE | 2019-02-18 13:30 | Diag Imaging Result Doc PS360 ---
EXAM: CT HEAD W/O CONTRAST 02/18/2019 HISTORY: encephalopathy TECHNIQUE: This exam was performed using automated exposure control, adjustment of mA or kV according to patient size, and/or use of iterative reconstruction technique. COMMENT: There is mild generalized cerebral atrophy. There is extensive abnormal white matter lucency present in both hemispheres particularly in the area of the anterior limb of the internal capsule and external capsule and sun radiata on the left. There is no evidence of mass effect, bleed, or abnormal extra-axial fluid collection. Compared to the previous study of 09/18/2018, there has been no significant change. IMPRESSION: Chronic ischemic microvascular white matter disease. No evidence of acute disease. Electronically signed by Giancarlo Anne 02/18/2019 1:28 PM
[2019-02-18 14:18] LABS: URINE SOURCE CATH
[2019-02-18 14:23] LABS: BILIRUBIN URINE NEGATIVE (NEGATIVE); BLOOD URINE TRACE (NEGATIVE); COLOR YELLOW; GLUCOSE URINE NEGATIVE (NEGATIVE); KETONE URINE NEGATIVE (NEGATIVE); LEUKOCYTES URINE NEGATIVE (NEGATIVE); NITRITE URINE NEGATIVE (NEGATIVE); PROTEIN URINE NEGATIVE (NEGATIVE); SP GRAVITY URINE 1.012; TURBIDITY URINE CLEAR (CLEAR); UROBILINOGEN URINE NORMAL (NORMAL)
[2019-02-18 14:28] LABS: UR EPITHELIAL CELLS <10 /HPF (<10); URINE BACTERIA NEGATIVE /HPF; URINE RBC <10 /HPF (<10); URINE WBC <10 /HPF (<10)
--- NOTE | 2019-02-18 14:58 | Diag Imaging Result Doc PS360 ---
EXAM: US GB < RUQ (LIMITED) 02/18/2019 HISTORY: elevated liver enzymes TECHNIQUE: Right upper quadrant ultrasound COMMENT: The pancreatic head contains a fairly well-circumscribed hypoechoic nodule measuring 9 mm in greatest dimension. This was also apparently present on 11/08/2018. The pancreatic tail is not well demonstrated. The aorta is slightly distended to 2.2 cm. The visualized portions of the inferior vena cava are within normal limits. The liver is unremarkable. There is antegrade flow in the portal vein. There are numerous stones in the gallbladder some of which measure in excess of 11 mm. There is no sonographic Evangelista sign. There is no evidence of biliary dilatation the common bile duct measuring less than 6 mm in diameter. There is a 1.4 cm cyst in the upper pole of the right kidney. There is no evidence of hydronephrosis. IMPRESSION: Cholelithiasis. Apparent mass in the head of the pancreas. This has been demonstrated on previous ultrasound. Noncontrast MRI and CT did not demonstrate the abnormality in follow-up with contrast may be desirable. Electronically signed by Giancarlo Anne 02/18/2019 2:56 PM
--- NOTE | 2019-02-18 19:28 | GENERAL SURGERY CONSULTATION ---
DATE: 02/18/2019 HISTORY OF PRESENT ILLNESS: This is a gentleman who has been in the hospital for some time. He was transferred to ICU for a CAT call. Dr. Agosto was consulted regards to this and on his review of the record, he noted he had an abdominal ultrasound earlier today that demonstrated a pancreatic mass. This apparently was noted back in October as well. He has had other ongoing medical issues, was admitted this go around with a right greater trochanteric fracture recently discharged from rehab. Had persistent falls, altered mental status. He is in ICU now hemodynamically stable. History is otherwise limited, obtained from medical history. MEDICAL HISTORY: CVA, vascular dementia, hypertension, diabetes, hyperlipidemia, GERD, pancreatic head nodule felt to be a poor operative candidate in past, right inter trochanteric fracture. SURGICAL HISTORY: He has had a right hip repair. MEDICATIONS: Reviewed. SOCIAL HISTORY: He does have a history of smoking, apparently no alcohol, drugs. FAMILY HISTORY: Coronary disease. REVIEW OF SYSTEMS: Limited given the patient's mental status. PHYSICAL EXAM: He is afebrile, heart rates in the 50s, blood pressure been 150s, 170s, oxygen saturation 100% on nasal cannula.General: He does appear alert but he is confused. HEENT: No scleral icterus. Integument: He does have some faint jaundice. Cardiovascular: Normal rate. Pulmonary: No increased work of breathing. Abdomen: Soft. He is somewhat thin. No palpable masses. Psychiatric: He is alert but not really coherent. Neurologic: Generalized weakness. Musculoskeletal: Does have cachexia throughout . Peripheral vascular: No lower extremity edema. LAB: White count was normal at 10. Bilirubin has been mildly elevated up to 1.37, AST, ALT and alkaline phosphatase are also elevated up to 15.16. Urinalysis shows trace blood. I reviewed his imaging including abdominal ultrasound. He has had a CT scan that was non con in the past that apparently did not demonstrate the lesion. ASSESSMENT/PLAN: A 68-year-old gentleman with elevated liver function tests and the pancreatic head mass is obviously concerning for neoplastic process. When stable I would obtain contrast imaging pancreatic protocol and obtain a CA-19-9 level to better define this. Will follow along but currently given his medical history is a poor operative candidate, especially for pancreatic resection. Will follow along. cc: Chinmay Samaniego MD
[2019-02-19 04:26] LABS: BASO# 0.12 X1000 (0.0-0.2); EOS# 1.44 X1000 (0.0-0.7); EOS% 12.4 % (0.0-10.0); HEMATOCRIT 39.9 % (42.0-52.0); HEMOGLOBIN 13.3 g/dL (14.0-18.0); IMM GRAN# 0.02 X1000 (0.0-0.04); IMM GRAN% 0.2 % (0.0-0.5); LYMPH# 2.28 X1000 (1.2-3.4); LYMPH% 19.6 % (20.5-51.1); MCH 30.9 PG (27-31); MCHC 33.3 g/dL (33-37); MCV 92.6 FL (81-99); MONO# 0.74 X1000 (0.11-0.59); MONO% 6.4 % (1.7-9.3); MPV 10.1 FL (7.4-10.4); NEUT# 7.05 X1000 (1.4-6.5); NEUT% 60.4 % (42.2-75.2); PLT 231 X1000 (130-400); RBC 4.31 XMIL (4.7-6.1); RDW 13.1 % (11.5-14.5); WBC 11.65 X1000 (4.8-10.8)
[2019-02-19 04:59] LABS: AGAP 9; ALB/GLOB RATIO 0.6; ALBUMIN 3.1 g/dL (3.5-5.0); BUN 20 mg/dL (8-22); CALCIUM 9.1 mg/dL (8.8-10.2); CHLORIDE 102 mmol/L (98-107); COSMO 276; ESTIMATED GFR > 60; GLUCOSE 89 mg/dL (70-104); GOT 70 U/L (10-34); GPT 79 U/L (10-44); POTASSIUM 3.6 mmol/L (3.5-5.1); SODIUM 137 mmol/L (136-145); TCO2 26 mmol/L (25-35); TOTAL BILIRUBIN 1.34 mg/dL (0.20-1.00); TOTAL PROTEIN 7.9 g/dL (6.3-8.3)
[2019-02-19 05:03] LABS: ALKALINE PHOSPHATASE 1395 U/L (32-122)
[2019-02-19] MEDS: LOVENOX SUBQ SCH (05:13)
[2019-02-19] MEDS: HUMULIN R SUBQ SCH ×4 (06:07→23:29)
[2019-02-19] MEDS: PRILOSEC PO SCH (06:08)
[2019-02-19] MEDS ORDERED: ASPIRIN PR SCH (09:00)
[2019-02-19] MEDS ORDERED: BUSPAR PO ONE (10:07)
--- NOTE | 2019-02-19 10:42 | PROGRESS NOTE ---
DATE: 02/19/2019 SUBJECTIVE: The patient has no major complaints. He is much more awake today. He seems a little bit more agitated too. OBJECTIVE: Vital Signs: Blood pressure is 173/93, heart rate 59, respiratory rate around 10, temp 98.1 degrees. He is afebrile, saturating 99% on 3 L. Cardiovascular: Regular rate and rhythm. Pulmonary: Bilateral breath sounds. Clear to auscultation. GI: Soft, nontender, nondistended. Bowel sounds are positive. IMAGING AND LABORATORY DATA: White count is 11, hemoglobin and hematocrit 13 and 39, platelets 231,000. Basic was normal. His AST and ALT are mildly elevated, and they have been that way for a while now. Head CT really was unremarkable. He does have a fairly hyperdense lesion right in the midline, but presumably that is a bony abnormality and not any hemorrhage. PROBLEM LIST: 1. Encephalopathy. It is probably just related to his dementia. I am waiting on neurologic input. 2. Bradycardia. He has kind of gone up and down as far as that is concerned, and I am not sure how symptomatic he is. Yesterday, he was minimally responsive with really unclear reason for it, but we will continue to monitor. I have stopped everything sedating, except he is on oxcarbazepine, which I think he needs, and buspirone, so we will resume those medicines, maybe at a little lower dose, although the buspirone he is really not on very much at all, so we will see how that works. 3. Symptomatic bradycardia. We will see how he is doing. I appreciate Dr. Gutierrez's input. Again, we are not going to be able to do too much. He has got fairly significant dementia, but he is not really a candidate for anything aggressive at this point, and based on family conversations, they seem to be consistent with that. 4. Elevated liver enzymes. He does have gallstones. I cannot tell if he is particularly symptomatic, but he is not eating very well. Surgery has been consulted, which I think is reasonable. When he was here in October, Dr. Crowe extensively worked up the transaminitis because there was a hepatic lesion on an ultrasound, but they did an MRI at that time, which was negative, and they did testing for chronic liver disease, and nothing was really revealing. I will repeat a CT scan today just to make sure that he has not had any progression in the size. Again, he is not really a surgical candidate, so we will follow. 5. Disposition. He really has no rehab abilities at this point. He does not have any days to qualify for rehab, so we are looking at other options, which include long- term placement, but that will not be managed inpatient, but we are looking at setting up hospice. We will continue treatment there and see how he does. As soon as we can get hospice worked out, we will go there. cc: Jonathan Zuluaga MD MTDD
--- NOTE | 2019-02-19 14:46 | CONSULTATION ---
DATE OF CONSULTATION: 02/19/2019 REASON FOR CONSULTATION: Altered mental status. HISTORY OF PRESENT ILLNESS: This is a 68-year-old male with a history of stroke, vascular dementia, other vascular risk factors and pancreatic head nodule. He was admitted five days ago after he presented for elevated blood pressure and recurring falls. History is from chart review as there is no family currently available. The patient cannot provide the history. I believe the patient had a recent right greater trochanteric fracture, was in a rehab facility and had been sent home. His family brought him back to the emergency department due to falls and concern for blood pressure being elevated. During his stay, he has had periods of relative lethargy. He has been bradycardic. There was a CAT call yesterday because the patient was unresponsive and apneic. He was very confused after the event. He was groggy. It is not clear whether or not he had gradual progression in lethargy versus waxing and waning periods from what I can read in the notes. MRI on 02/14 with and without contrast did not show acute findings. A head CT performed yesterday also did not show acute findings. Today he is much more alert, sitting up in bed. A nurse aide is feeding him lunch. PAST MEDICAL HISTORY: 1. Remote stroke, at least 1 in 2012 and another in 2016. 2. Vascular dementia. 3. Diabetes. 4. Hypertension. 5. Hyperlipidemia. 6. Pancreatic head nodule. He has been felt to be a poor operative candidate. 7. Recent right greater trochanteric fracture. 8. GERD. SOCIAL HISTORY: Current smoker. No alcohol or illicits. FAMILY HISTORY: No coronary disease. ALLERGIES: No known drug allergies listed. CURRENT MEDICATIONS: Buspirone 7.5 mg p.o. q.a.m., oxcarbazepine 150 mg p.o. at bedtime. REVIEW OF SYSTEMS: Unable to assess due to patient's confusion. PHYSICAL EXAM: Vital Signs: Afebrile. Blood pressure 150-170 systolic over 80s-114 diastolic, pulse 50s to 60s, respirations 18, 94% on 3L nasal cannula. General: Mr. Castro is sitting up in the ICU bed with the tray table nearby. home hospice aide is feeding him lunch. As I enter the room, he states his name, Buster Castañeda. Does not know timing questions or the President. He follows simple commands, but not complex ones. He was usually attentive, but not always. Left/right and digit distinction was preserved. He is dysarthric and I believe this may be chronic. No definite language disturbance. Pupils equal, round, reactive. 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 The remainder of the eye movements are preserved. There is some reduced upgaze bilaterally, however. Face appears symmetric with equal activation. Facial sensation reported intact. I could not get him to open his mouth or protrude tongue on command. He blinks to threat in all visual cadena. More detailed testing could not be performed. He had a difficult time relaxing during passive manipulation of the extremities. Power seemed preserved in the arms and legs. Reflexes: 1+ at the biceps, absent ankle jerks. No clonus. He would not participate with coordination testing. He responds to sensory stimulus in all extremities, but could not participate in more detailed testing. Did not test his gait. DIAGNOSTICS: 1. Noncontrasted head CT performed yesterday personally reviewed. He has moderate generalized cerebral atrophy and extensive chronic ischemic microvascular disease. 2. MRI of the brain with and without contrast on 02/14/2019 did not show acute findings. This was personally reviewed. 3. White count 11.6. Normal sodium, BUN, creatinine. Blood sugars 80s to low 100s. Calcium normal. Magnesium normal. AST, ALT have been a bit elevated at 70 and 79, and this is not new for him. Urinalysis with trace blood, otherwise negative. ASSESSMENT AND PLAN: Global encephalopathy. This may be multifactorial. Apparent improvement today compared to yesterday. This is reassuring. We know that patients with cognitive impairment are at greater risk for more protracted course of encephalopathy with any toxic or metabolic disturbance. My hope is that with continued management he will continue to show improvement. I will order a routine electroencephalogram. I agree with limiting any unnecessary medications. I would however continue his aspirin if there is no contraindication. Thank you for the consult. cc: Mayra Delacruz MD
--- NOTE | 2019-02-19 16:10 | Diag Imaging Result Doc PS360 ---
EXAM: CT ABD/PELVIS W/PO AND IV CON INDICATION: pancreatic mass TECHNIQUE: This exam was performed using automated exposure control, adjustment of mA or kV according to patient size, and/or use of iterative reconstruction technique. COMPARISON: Unenhanced CT dated 09/20/2018 FINDINGS: There is mild subsegmental atelectasis at the lung bases. The gallbladder is contracted. The liver and spleen are grossly unremarkable. No discrete pancreatic mass can be identified by CT. There is a retroperitoneal nodule that is near the pancreatic body on image 44 of series 4. This may represent a prominent celiac region lymph node. It measures up to 2.3 x 1.5 cm axially. This was probably present on the previous study but is indistinguishable from the pancreas previously due to lack of IV contrast. The adrenal glands are unremarkable. There are several small bilateral renal cysts. The kidneys are unremarkable, otherwise. There is a Armendariz catheter in the urinary bladder and the bladder is largely nondistended. The appendix is normal. The remainder of the GI tract is grossly unremarkable. There is stable subaneurysmal ectasia of the abdominal aorta. No focal inflammatory changes, free abdominal gas, or free fluid is appreciated. There has been an interval right hip arthroplasty. There is no evidence of acute osseous abnormality. IMPRESSION: 1.Upper abdominal nodule that is near the pancreas that may represent a prominent and nonspecific celiac lymph node. However, no discrete pancreatic mass can be identified by CT. 2.Other incidental/nonacute findings detailed above. Electronically signed by Gregory Parra 02/19/2019 4:08 PM
[2019-02-19] MEDS ORDERED: TRILEPTAL PO SCH (21:00)
[2019-02-20] MEDS: LOVENOX SUBQ SCH (05:57)
[2019-02-20 06:50] LABS: BASO# 0.14 X1000 (0.0-0.2); BASO% 1.6 % (0.0-0.8); EOS# 1.55 X1000 (0.0-0.7); EOS% 17.5 % (0.0-10.0); HEMATOCRIT 37.1 % (42.0-52.0); HEMOGLOBIN 12.4 g/dL (14.0-18.0); IMM GRAN# 0.02 X1000 (0.0-0.04); IMM GRAN% 0.2 % (0.0-0.5); LYMPH# 2.32 X1000 (1.2-3.4); LYMPH% 26.2 % (20.5-51.1); MCH 30.3 PG (27-31); MCHC 33.4 g/dL (33-37); MCV 90.7 FL (81-99); MONO# 0.79 X1000 (0.11-0.59); MONO% 8.9 % (1.7-9.3); MPV 10.9 FL (7.4-10.4); NEUT# 4.04 X1000 (1.4-6.5); NEUT% 45.6 % (42.2-75.2); PLT 233 X1000 (130-400); RBC 4.09 XMIL (4.7-6.1); RDW 12.7 % (11.5-14.5); WBC 8.86 X1000 (4.8-10.8)
[2019-02-20 07:16] LABS: AGAP 12; ALB/GLOB RATIO 0.7; ALBUMIN 3.1 g/dL (3.5-5.0); BUN 19 mg/dL (8-22); CALCIUM 8.4 mg/dL (8.8-10.2); CHLORIDE 103 mmol/L (98-107); COSMO 283; CREATININE 0.9 mg/dL (0.7-1.2); ESTIMATED GFR > 60; GLUCOSE 87 mg/dL (70-104); GOT 65 U/L (10-34); GPT 73 U/L (10-44); POTASSIUM 3.5 mmol/L (3.5-5.1); SODIUM 141 mmol/L (136-145); TCO2 26 mmol/L (25-35); TOTAL BILIRUBIN 1.21 mg/dL (0.20-1.00); TOTAL PROTEIN 7.6 g/dL (6.3-8.3)
[2019-02-20 07:27] LABS: ALKALINE PHOSPHATASE 1412 U/L (32-122)
[2019-02-20] MEDS ORDERED: BUSPAR PO SCH (09:00)
--- NOTE | 2019-02-20 09:03 | PROGRESS NOTE ---
DATE: 02/20/2019 Mr. Castro was admitted on 02/14/2019. Came in after falls, elevated blood pressure. A 68-year- old with a history of CVA, vascular dementia, hypertension, diabetes mellitus type 2, pancreatic head nodule, recent right greater trochanteric fracture. Presented to rehab and was sent home. However, family brought him back to the emergency department, said he was having more falls. The patient is a poor historian. No family was around during the interview when he was admitted. Most of the history obtained from the ER charting and previous records. PAST MEDICAL HISTORY: CVA, vascular dementia, hypertension, diabetes mellitus type 2, hyperlipidemia, gastroesophageal reflux disease, pancreatic head nodule, right greater trochanteric fracture recently. PAST SURGICAL HISTORY: No other surgical history that he is aware of. ADMISSION DIAGNOSES: 1. Recent frequent falls. 2. He had some mild hypokalemia. 3. Hypertension, which I felt was uncontrolled. 4. Diabetes mellitus type 2. 5. Underlying dementia. PHYSICAL EXAMINATION: Today, on exam, he is resting, sleeping, he appears comfortable, breathing comfortably. Temperature 97.6 degrees, pulse 52, respirations 19, blood pressure 152/85. Pupils are equal and round. Lungs are clear in all lung cadena. Cardiovascular Examination: Regular rhythm and rate without murmur or S3. Neurology has evaluated. ASSESSMENT AND PLAN: 1. Noncontrasted head CT which was performed 2 days ago. It showed moderate generalized cerebral atrophy and extensive chronic ischemic microvascular disease. MRI of the brain with and without contrast on 02/14/2019 did not show any acute findings. Dr. Pina personally reviewed this. White count was 11,600. Normal sodium, BUN, and creatinine. Calcium was normal. It appears he has global encephalopathy. It may be multifactorial. Apparently, there has been some improvement since his admission. Not sure what his baseline is. We know the patient's cognitive impairment is present and he has a high risk of getting encephalopathy, either toxic or metabolic or disturbance. If he continues to show improvement, we will try and limit the unnecessary medications. 2. Bradycardia, appears to be asymptomatic. Continue to monitor. 3. Elevated liver enzymes. He does have some gallstones. It is hard to tell if this is symptomatic. Surgery was consulted and Dr. Crowe extensively worked up transaminitis. There was a hepatic lesion on ultrasound. Did an MRI at that time which was negative. They did some testing for chronic liver disease and nothing really was revealed. They repeated a CT scan. 4. Disposition. He does not have any days at rehab. Continue to work on his health and mental status. His options are to look for long-term placement and possibly going home with hospice. We will see how this progresses. LABORATORY DATA: Review of his lab, today white count is 8860, hematocrit is 37, platelet count is 233,000. Sodium 141, potassium 3.5, chloride 103, BUN 19, creatinine 0.9. Blood sugars 119, 89, 168. REVIEW OF ORDERS: He is on oxcarbazepine 150 mg p.o. at bedtime, BuSpar 7.5 mg q.a.m., Lovenox 40 mg subcutaneous daily, Prilosec 40 mg a day. He has social service looking. cc: Brendan Palacios MD
--- NOTE | 2019-02-20 10:24 | DISCHARGE SUMMARY ---
ADMISSION DATE: 02/14/2019 DISCHARGE DATE: 02/20/2019 DISPOSITION: Discharged to home with hospice. PRIMARY CARE PHYSICIAN: He has no primary care physician that I know of. HISTORY OF PRESENT ILLNESS: He presented on 02/14/2019 after having several falls and elevated blood pressure. A 68-year-old male with a history of CVA, vascular dementia, hypertension, diabetes mellitus type 2, pancreatic head nodule, a recent right greater trochanteric fracture. Apparently went to rehab and then was sent home. However, family brought patient back to the emergency room due to having more falls. The patient is a poor historian. Family was not around. History was obtained from the ER chart and previous records. At the time of examination, patient stated that he felt okay but not able to provide any more information. PAST MEDICAL HISTORY: 1. CVA. 2. Vascular dementia. 3. Hypertension. 4. Diabetes mellitus type 2. 5. Hyperlipidemia. 6. Gastroesophageal reflux disease. 7. Pancreatic head nodule. 8. Right greater trochanteric fracture. ADMISSION DIAGNOSES: 1. Status post falls, general weakness. 2. Mild hypokalemia. 3. Hypertension. 4. Diabetes mellitus type 2. 5. Dementia. HOSPITAL COURSE: The patient had a brain MRI that showed cerebral atrophy, chronic microvascular disease. No acute process. A nuclear bone scan was done on 02/17/2019. Increased activity associated with right hip that was felt to be residual activity from a fall, recent fracture. Hip x-ray, there was right degenerative arthropathy involving the hip. No definite acute osseous abnormality. Abdominal ultrasound done on 02/18/2019 showed cholelithiasis, apparent mass at the head of the pancreas. This has been demonstrated on previous ultrasound. Noncontrast MRI and CT did not demonstrate abnormality and a followup with contrast may be desirable. Head CT on 02/18/2019, chronic ischemic microvascular white matter disease. No evidence of acute disease. General surgery, Dr. Samaniego, evaluated. The patient had elevated liver function tests and a pancreatic head mass, obviously concerning for neoplastic process. [place] like if he became stable, could pursue further diagnostic studies. They did obtain a CA-19-9 level. [place] the patient was a poor surgical candidate. Followup abdominal and pelvic CT, abdominal nodule that is near the pancreas that may represent prominent or nonspecific celiac lymph node. However, no discrete pancreatic mass could be identified on CAT scan. Dr. Delacruz from neurology was consulted. [place] he had general global encephalopathy, may be multifactorial. Apparently a little bit of improvement since he has been in the hospital. The patient is cognitively impaired. With this patient's cognitive impairment, he is at more risk for encephalopathy, both toxic, metabolic, and disturbance type. Family discussed and would like to take him home with hospice care. DISCHARGE DIAGNOSES: 1. Encephalopathy, probably related to dementia and multifactorial. 2. Bradycardia. They followed his heart rate throughout the hospital course. He had some symptomatic bradycardia. It is difficult to tell how symptomatic, given his underlying dementia. 3. Elevated liver enzymes, transaminase. It looks like these have come down to a degree. Dr. Crowe did an extensive workup for transaminitis, which was negative. 4. Disposition. He is not a surgical candidate. He shows minimal improvement and the family would like to discharge him home for home hospice. DISCHARGE MEDICATIONS: BuSpar 7.5 mg q.a.m., Prilosec 40 mg a day, Trileptal 150 mg p.o. at bedtime, and Tylenol 650 mg q.6 hours p.r.n. cc: Brendan Palacios MD
--- NOTE | 2019-02-20 10:52 | PROGRESS NOTE ---
DATE: 02/20/2019 SUBJECTIVE: The patient was admitted with reported history of baseline dementia, possibly vascular dementia. Dr. Delacruz saw him for Neurology evaluation yesterday. He was found poorly responsive, and seemed to recover spontaneously. Brain MRI shows usual changes, but nothing focal or acute. His home medicine list includes oxcarbazepine 150 mg at bedtime. He told me that he thinks he is feeling better today. He told me he did not know why he has the oxcarbazepine on board. He could not tell me how he takes medicines or the reason he has medicines. He could not tell me who supervises medications at home. OBJECTIVE: On exam, he is awake, alert, and attentive. Speech is dysarthric but easily understood. Language function is intact on brief bedside testing. He could not tell me the name of the hospital, the day of the week, or the month. I did not test his cognitive function further. ASSESSMENT AND PLAN: I think he may be a little bit brighter than earlier this admission. I do not have any suggestion from neurology standpoint today. With report that he seemed poorly responsive and recovered rapidly and possibility that there might have been sudden onset, seizure might be a consideration. If he has more episodes, we might consider EEG. I do not know the reason he takes oxcarbazepine, but the dose is likely not sufficient to provide significant benefit, at least as an antiseizure medication. Thanks for asking us to see Mr. Castro. cc: MD SHWETA Taylor III
[2019-02-20] MEDS: HUMULIN R SUBQ SCH ×2 (13:49→16:49)
[2019-02-20 14:15] VITALS: BP 155/86
--- NOTE | 2019-02-21 14:10 | DISCHARGE SUMMARY ---
ADMISSION DATE: 02/14/2019 DISCHARGE DATE: 02/20/2019 HISTORY OF PRESENT ILLNESS: This is a patient of douglas, Dr. Brendan Palacios. A 81-year-old with history of hypertension, hyperlipidemia, presented to the emergency room with one-week history of having dark blood in his stools, feeling somewhat weak and subsequently came into the emergency room and found to have profound anemia. Reports that he has had kind of bleeding off and on. His sister is concerned he has had more of this than he has been reporting. PAST MEDICAL HISTORY: 1. Hypertension. 2. Hyperlipidemia. 3. Osteoarthritis PAST SURGICAL HISTORY: Inguinal hernia repair, sinus surgery, bilateral hip replacement, left total knee arthroplasty. ALLERGIES: No known drug allergies. HOSPITAL COURSE: On presentation his hemoglobin was 5.4, so I gave him several units of packed red blood cells. He continued to seem to have some signs of bleeding. GI was consulted, Dr. Acosta. He had I think a colonoscopy in the past revealing diverticulosis, but had not identified a clear bleed. He had a GI bleed scan on 02/16/2019, which was a negative scan. He had a CT of the abdomen and pelvis done on 02/17/2019. Bilateral lower lobe and right middle lobe pneumonia was suggested, but it looks like atelectasis. No evidence of GI obstruction, diverticulosis coli, and was concerned because he continued to have blood loss. Dr. Rosas was consulted for General Surgery and he followed along. We did do a carotid Doppler, and the carotid vessels were torturous bilaterally in the neck, but there was only mild atherosclerotic disease in the distal common and internal carotid arteries bilaterally without evidence of hemodynamically significant lesions. He seemed to quit bleeding. His hematocrit remained stable at 25 and hemoglobin of 8 and felt like he could go home. Did not want to pursue any surgical therapy, and did talk about the diet that is appropriate for diverticulosis. His exam on the day of discharge: PHYSICAL EXAMINATION: Vital Signs: Afebrile, temperature 99 degrees, pulse 85, respirations 16, blood pressure 138/52. Eyes: Pupils are equal and round. Lungs: Clear in all lung cadena. Cardiovascular exam: Regular rhythm and rate without murmur or S3. : Had good urine output. DISCHARGE MEDICATIONS: I have him on Mucinex DM 1 twice a day, hydrocodone 7.5 mg q. 6 hours p.r.n. that he is on at home, Protonix 40 mg which I will give to him p.o. twice a day. DISCHARGE DISPOSITION: Will follow up in my office in a couple of weeks. We will follow up on his blood count as well when I see him in a couple weeks. cc: Brendan Palacios MD
== END 2019-02-20 17:07 | disposition hospice, home (50) | DRG 884 ==
LOC: SUPCPDRO → ED 22:41 → 3N 22:41 → SUATTDRO 02-14 01:57 → 3N 02-14 02:20 → SUATTDRO 02-15 10:55 → ICU 02-18 12:29 → 3N 02-19 15:04
PROVIDERS: ATTEND Emergency Medicine